=== PATIENT | male | born 1960 | race Caucasian/White ===

== ENCOUNTER → 2016-07-26 | Outpatient (CLI) | payer OTHER ==
[~2016-07-26] MED LIST: ASPCH81X PO; ASPI325T39 PO; BCTROWC EXT; CBCI IV; CIPR1TAB10 PO; CLB200 PO; CLC100 PO; COEN50CA22; DTR5 PO; FLV400; HYDR-5688 PO; METO25TA3 PO; MULT-506 PO; OXYC7.5T62 PO; PYRI1TAB30; [UNRECOGNIZED DRUG - CODE] TOP; [UNRECOGNIZED DRUG - OTHER]; omega q plus
[2016-07-26 17:36] LABS: BASO % 0.3 %; BASO ABS # 0.02 K/uL (0-0.2); COMPLETE YES; EOS % 0.8 %; IG% 0.3 %; LYMPH % 32.9 %; LYMPH ABS # 2.09 K/uL (1.2-3.4); MEAN CORPUSCULAR HEMOGLOBIN 31.9 pg (25-34); MEAN CORPUSCULAR HGB CONC 35.5 g/dl (32-36); MEAN PLATELET VOLUME 11.5 fL (7.4-10.4); MONO % 6.1 %; NEUT % 59.6 %; PLATELET COUNT 190 K/uL (130-400); RED BLOOD COUNT 4.89 M/uL (4.7-6.1); WHITE BLOOD COUNT 6.35 K/uL (4.8-10.8)
[2016-07-26 17:52] LABS: ALT/SGPT 31 U/L (12-78); AST/SGOT 21 U/L (15-37); BLOOD UREA NITROGEN 17 mg/dl (7-18); BUN/CREATININE RATIO 16.6 (10-20); CALCIUM 8.9 mg/dl (8.5-10.1); CARBON DIOXIDE 26 mmol/L (21-32); CHLORIDE 105 mmol/L (98-107); GLUCOSE 90 mg/dl (70-99); POTASSIUM 3.7 mmol/L (3.5-5.1); SODIUM 140 mmol/L (136-145)
[2016-07-26 17:57] LABS: ALB/GLOB RATIO 1.1 (0.9-2); ALKALINE PHOSPHATASE 64 U/L (45-117); CHOLESTEROL 208 mg/dl (0-200); CHOLESTEROL/HDL RATIO 4.2; HDL CHOLESTEROL 49 mg/dl; LDL CHOLESTEROL CALCULATED 137 mg/dl; TRIGLYCERIDES 110 mg/dl (0-150); VERY LOW DENSITY LIPOPROT CALC 22 mg/dl
--- NOTE | 2016-07-30 11:22 | CODING QUERY MEDICAL NECESSITY ---
SUPPORTING DIAGNOSIS NEEDED Dr. Machado, A supporting diagnosis is required for the test/procedure performed on this patient in order for us to be reimbursed by the patient's insurance. Please provide a supporting diagnosis for the following test/procedure listed below next to the test name along with your signature. *If there is no additional diagnosis for this patient that would support the following test/procedure please document that below next to the test/procedure. Test(s)/Procedure(s) that require a supporting diagnosis: * 16120 PSA DIAGNOSIS: DATE OF SERVICE: 07/26/16 Provider Signature: Date: Thank you Jabari Shi [facility] Information Management Once completed, please kindly fax back to [phone] For questions please call [phone]
== END | disposition home or self-care (01) ==
LOC: C.LABPBG 11:47
PROVIDERS: ATTEND Neuromusculoskeletal Medicine & OMM
DX: Z00.00 Encounter for general adult medical examination without abnormal findings (principal)

== ENCOUNTER → 2016-10-26 | Outpatient (CLI) | payer OTHER | END | disposition home or self-care (01) | LOC: C.LABPBG 08:23 | PROVIDERS: ATTEND Internal Medicine Infectious Disease | DX: T84.50XA Infection and inflammatory reaction due to unspecified internal joint prosthesis, initial encounter (principal); X58.XXXA Exposure to other specified factors, initial encounter ==

== ENCOUNTER → 2016-12-03 | Outpatient (CLI) | payer OTHER ==
[~2016-12-03] MED LIST changes: -ASPI325T39 PO; -CBCI IV; -CLB200 PO; -COEN50CA22; -FLV400; -HYDR-5688 PO; -PYRI1TAB30; -[UNRECOGNIZED DRUG - OTHER]; -omega q plus
== END | disposition home or self-care (01) ==
LOC: C.LABPBG 07:28
PROVIDERS: ATTEND Urology
DX: R97.20 Elevated prostate specific antigen [PSA] (principal)

== ENCOUNTER → 2016-12-16 | Outpatient (CLI) | payer OTHER ==
[~2016-12-16] MED LIST changes: -CIPR1TAB10 PO; -CLC100 PO; -DTR5 PO; -MULT-506 PO; -OXYC7.5T62 PO; -[UNRECOGNIZED DRUG - CODE] TOP
== END | disposition home or self-care (01) ==
LOC: C.PATHSPEC 17:34
PROVIDERS: ATTEND Urology
DX: R97.20 Elevated prostate specific antigen [PSA] (principal)

== ENCOUNTER → 2016-12-30 | Outpatient (CLI) | payer OTHER ==
[~2016-12-30] MED LIST changes: +CIPR1TAB10 PO; +CLC100 PO; +DTR5 PO; +MULT-506 PO; +OPTIRAY 320 IV PRN; +OXYC7.5T62 PO; +[UNRECOGNIZED DRUG - CODE] TOP
--- NOTE | 2016-12-30 13:38 | DIAGNOSTIC IMAGING REPORT ---
CT UROGRAM CLINICAL HISTORY: Hematuria. Prostate cancer. COMPARISON STUDY: No priors. TECHNIQUE: Before and following the IV administration of 94 cc of Optiray 320, CT urogram of the abdomen and pelvis is performed from the lung bases to the proximal femora. Images are reviewed in the axial, sagittal, and coronal planes. IV contrast was administered without complication. A dose lowering technique was utilized adhering to the principles of ALARA. CT DOSE: 1387.50 mGycm FINDINGS: Lung bases: The heart is normal in size and without pericardial effusion. The lung bases are clear. Liver: The contrast-enhanced liver is normal in size, contour, and attenuation. There is no intrahepatic biliary ductal dilatation. The hepatic veins and portal veins are patent. Gallbladder: Unremarkable. Spleen: Normal in size and attenuation. Pancreas: Unremarkable. Adrenal glands: Unremarkable. Kidneys and ureters: The contrast enhanced kidneys are normal in size and without hydronephrosis. There are no renal calculi identified on the unenhanced images. The kidneys enhance and excrete symmetrically. A 9 mm exophytic cyst arises from the upper pole of the right kidney. There is no enhancing renal cortical mass lesion identified. There is no evidence of urothelial lesion within the renal pelvis bilaterally or along the course of either ureter. A retroaortic left renal vein is incidentally noted. Abdominal vasculature: The abdominal aorta is normal in course and caliber noting mild atherosclerotic calcification. Bowel: The small bowel and colon are normal in course and caliber. The appendix is well-visualized and normal. Peritoneum: There is no intraperitoneal free air or abdominal ascites. There is a small fat-containing umbilical hernia. Lymphadenopathy: None. Pelvic viscera: Evaluation of the pelvis is degraded by streak artifact from a right hip arthroplasty. The prostate gland is enlarged and heterogeneous measuring 6.2 cm in transverse diameter. The bladder is decompressed, and the wall appears thickened and trabeculated. This suggests the sequelae of chronic outlet obstruction. The pelvic viscera is suboptimally assessed. Skeletal structures: No lytic or blastic bony lesions are seen. A right hip arthroplasty is in place. There is mild lumbosacral spondylosis. A healed right pubic ring fracture is noted. IMPRESSION: 1. No renal calculi are identified. 2. There is no enhancing renal cortical mass, and no evidence of urothelial lesion is seen within the renal pelvis bilaterally or along the course of the ureters. 3. The prostate gland is enlarged and heterogeneous. The appearance of the bladder suggests the sequelae of chronic outlet obstruction. The pelvic viscera is suboptimally assessed due to streak artifact from a hip arthroplasty. 4. There is no evidence of metastatic disease in the abdomen or pelvis. 5. Additional findings as above. Electronically signed by: Ramirez Bajwa M.D. 12/30/2016 1:37 PM Dictated Date/Time: 12/30/2016 1:26 PM
--- NOTE | 2016-12-31 07:24 | DIAGNOSTIC IMAGING REPORT ---
BONE SCAN WHOLE BODY CLINICAL HISTORY: Prostate cancer. COMPARISON STUDY: CT of the abdomen and pelvis December 30, 2016. TECHNIQUE: 26.526 mCi of technetium 90 9M MDP was injected IV at 1:00 PM on December 30, 2016. Whole body imaging in the anterior and posterior projections was performed 3 hours following injection. Spot images of the pelvis were obtained. FINDINGS: There is expected soft tissue and renal activity. Mild to moderate uptake within the medial compartment of the right knee is degenerative. There is a right hip arthroplasty with expected photopenia. There is a small focus of moderate radiotracer uptake which projects over the right inferior sacral ala shown only on the posterior projections. Uptake within the shoulders is degenerative. No additional areas of abnormal radiotracer uptake are identified. IMPRESSION: Small focus of moderate radiotracer uptake projecting over the right inferior sacral ala. This focus is indeterminate. A solitary metastasis would be difficult to exclude. An MRI of the sacrum and coccyx could be obtained. Electronically signed by: Austin Prado M.D. 12/31/2016 7:23 AM Dictated Date/Time: 12/30/2016 5:08 PM
== END | disposition home or self-care (01) ==
LOC: C.NUCL 12:36
PROVIDERS: ATTEND Urology
DX: C61 Malignant neoplasm of prostate (principal)

== ENCOUNTER → 2017-01-10 | Outpatient (CLI) | payer OTHER ==
[~2017-01-10] MED LIST changes: -BCTROWC EXT; -OPTIRAY 320 IV PRN
[2017-01-10 17:42] LABS: BASO % 0.6 %; BASO ABS # 0.03 K/uL (0-0.2); COMPLETE YES; HEMATOCRIT 44.8 % (42-52); IG% 0.4 %; LYMPH % 25.8 %; MEAN CELL VOLUME 96.1 fL (80-100); MEAN CORPUSCULAR HEMOGLOBIN 33.3 pg (25-34); MEAN CORPUSCULAR HGB CONC 34.6 g/dl (32-36); MEAN PLATELET VOLUME 11.2 fL (7.4-10.4); MONO % 10.9 %; NEUT % 60.3 %; PLATELET COUNT 169 K/uL (130-400); RED BLOOD COUNT 4.66 M/uL (4.7-6.1); WHITE BLOOD COUNT 5.42 K/uL (4.8-10.8)
[2017-01-10 17:47] LABS: URINE APPEARANCE CLEAR (CLEAR); URINE BILIRUBIN NEG (NEG); URINE COLOR YELLOW; URINE EPITHELIAL CELL AUTO 0-5 /lpf (0-5); URINE NITRITE NEG (NEG); URINE PH 5.5 (4.5-7.5); URINE SPECIFIC GRAVITY 1.021 (1.000-1.030); UROBILINOGEN NEG (NEG)
[2017-01-10 17:52] LABS: MANUAL MICROSCOPIC REQUIRED? NO; REVIEW REQ? NO
[2017-01-10 18:38] LABS: BLOOD UREA NITROGEN 20 mg/dl (7-18); BUN/CREATININE RATIO 20.3 (10-20); CALCIUM 9.4 mg/dl (8.5-10.1); CARBON DIOXIDE 27 mmol/L (21-32); CHLORIDE 106 mmol/L (98-107); GLUCOSE 99 mg/dl (70-99); POTASSIUM 4.3 mmol/L (3.5-5.1); SODIUM 137 mmol/L (136-145)
== END | disposition home or self-care (01) ==
LOC: C.LABPBG 14:27
PROVIDERS: ATTEND Urology
DX: C61 Malignant neoplasm of prostate (principal)

== ENCOUNTER → 2017-01-20 | Outpatient (CLI) | payer OTHER ==
[~2017-01-20] MED LIST changes: +GADAVIST IV PRN
--- NOTE | 2017-01-20 18:24 | DIAGNOSTIC IMAGING REPORT ---
MRI OF THE ABDOMEN COMBO; MRI OF THE PELVIS COMBO CLINICAL HISTORY: Prostate cancer. COMPARISON STUDY: Abdominal CT dated 12/30/2016. Nuclear bone scan dated 01/20/2017. TECHNIQUE: MRI of the abdomen and MRI of the pelvis is performed utilizing various T1 and T2-weighted sequences in the axial and coronal planes. Additional sagittal sequences were performed of the pelvis. Contrast enhanced sequences were acquired following the IV administration of 8 cc of Gadavist. FINDINGS: Lower chest: No pleural effusion is identified. The heart is normal in size without pericardial effusion. The lung bases are grossly clear as imaged but not well evaluated by MRI. Liver: The liver is normal in size, contour, and signal intensity. No intrahepatic biliary ductal dilatation is seen. The hepatic veins and portal veins are patent. Gallbladder: Unremarkable. Spleen: Normal in size and signal intensity. Small calcified splenic granulomas are suggested. Pancreas: Unremarkable. Adrenal glands: Unremarkable. Kidneys: The kidneys are normal in size and without hydronephrosis. The kidneys enhance symmetrically. A 9 mm cyst is noted in the right upper pole. A retroaortic left renal vein is incidentally noted. Abdominal aorta: Normal in course and caliber. Bowel: There is no evidence of bowel obstruction. Peritoneum: There is no abdominal ascites. Lymphadenopathy: None. Pelvic viscera: Evaluation of the pelvis is degraded by susceptibility artifact from a right hip arthroplasty. The bladder wall appears thickened and trabeculated suggesting chronic outlet obstruction. The prostate gland appears enlarged and heterogeneous, measuring 5.7 cm in transverse diameter. Skeletal structures: Visualized skeletal structures times are normal marrow signal intensity. Fatty marrow replacement is noted in the sacrum. No clear destructive bony lesions is identified. There is susceptibility artifact from a right hip arthroplasty. Bursal fluid overlies the right hip. IMPRESSION: 1. There is no MRI evidence of metastatic disease in the abdomen or pelvis. 2. There is fatty marrow change identified in the sacrum with no right sacral lesion identified to correspond to the abnormality seen by nuclear bone scan. The bone scan finding remains indeterminant. 3. The prostate gland is enlarged and heterogeneous. 4. Additional findings as above. Electronically signed by: Ramirez Bajwa M.D. 01/20/2017 6:22 PM Dictated Date/Time: 01/20/2017 6:05 PM
== END | disposition home or self-care (01) ==
LOC: C.MRI 16:36
PROVIDERS: ATTEND Urology
DX: C61 Malignant neoplasm of prostate (principal)

== ENCOUNTER 2017-01-25 08:00 | Inpatient (IN) | payer OTHER ==
[2017-01-11 10:10] VITALS: BMI 26.0
[2017-01-25] VITALS (7 sets, daily range): BP systolic 107–152; BP diastolic 73–87; PULSE 73–83; TEMP 36.5–37; O2SAT 95–98; Ht 180.3 cm; Wt 84.5 kg
[~2017-01-25] VITALS: Ht 180.3 cm; Wt 84.5 kg
[~2017-01-25 08:00] MED LIST changes: +CEFAZOLIN 2000 MG/60 ML D5W IV SCH; -CIPR1TAB10 PO; -CLC100 PO; -DTR5 PO; -GADAVIST IV PRN; +HEPARIN SOD 5000 UNIT/0.5 ML CARP SQ SCH; +LACTATED RINGER'S 1000ML 1,000 ML IV SCH; -OXYC7.5T62 PO; -[UNRECOGNIZED DRUG - CODE] TOP
[2017-01-25] MEDS ORDERED: ONDANSETRON INJ 2 MG/ML 2 ML VIAL IV PRN ×2 (09:00→14:45)
[2017-01-25] MEDS ORDERED: EpHEDrine SULFATE INJ 50 MG/ML AMP IV PRN (09:00)
[2017-01-25] MEDS ORDERED: HYDROmorphone INJ 1 MG/ML SYR IV PRN ×2 (09:00→14:45)
[2017-01-25] MEDS ORDERED: ATROPINE SULFATE 0.1 MG/ML 5ML SYR IV PRN (09:00)
[2017-01-25] MEDS ORDERED: LABETALOL HCL IV 5 MG/ML 20ML IV PRN (09:00)
[2017-01-25] MEDS ORDERED: FLUMAZENIL 0.1 MG/1 ML 10 ML VIAL IV PRN (09:00)
[2017-01-25] MEDS ORDERED: MEPERIDINE HCL 25 MG/ML CARP IV PRN (09:00)
[2017-01-25] MEDS ORDERED: MoRPHine SULFATE 10 MG/ML CARP/VIAL IV PRN (09:00)
[2017-01-25] MEDS ORDERED: NALOXONE HCL 0.4 MG/1 ML VIAL/CARP IV PRN (09:00)
[2017-01-25] MEDS ORDERED: PHENYLEPHRINE 100MCG/ML 5ML SYR IV PRN (09:00)
[2017-01-25] MEDS ORDERED: LIDOCAINE HCL 2% 2 ML VIAL (20MG/ML) ONE (09:31)
[2017-01-25] MEDS ORDERED: ONDANSETRON INJ 2 MG/ML 2 ML VIAL ONE (09:31)
[2017-01-25] MEDS ORDERED: ROCURONIUM BROMIDE 10 MG/ML 5 ML VIAL IV ONE ×2 (09:31→12:47)
[2017-01-25] MEDS ORDERED: PROPOFOL IV EMULSION 10 MG/ML 20 ML VIAL IV ONE (09:31)
[2017-01-25] MEDS ORDERED: DEXAMETHASONE SOD INJ 4 MG/ML VIAL ONE (09:31)
[2017-01-25] MEDS ORDERED: FENTANYL CITRATE INJ 50 MCG/1 ML 2 ML VIAL ONE ×2 (09:31→12:52)
[2017-01-25] MEDS ORDERED: HYDROmorphone INJ 2 MG/ML SYR/VIAL ONE (09:32)
[2017-01-25] MEDS ORDERED: MIDAZOLAM HCL 1 MG/ML 2ML VIAL ONE (09:32)
--- NOTE | 2017-01-25 11:36 | History & Physical Bridge Note ---
H&P Re-Evaluation Bridge Note: I have examined the patient, reviewed the History & Physical and in the interval since the performance of the History & Physical I have noted the following changes of clinical significance: No changes noted
[2017-01-25] MEDS ORDERED: BUPIVACAINE 0.5 % 5 MG/1 ML MPF 30ML VIAL ONE (11:56)
[2017-01-25] MEDS ORDERED: METHYLENE BLUE 0.5% 10 ML VIAL ONE (11:56)
[2017-01-25] MEDS ORDERED: BELLADONNA/OPIUM SUPP 60 MG SUPP PR ONE (12:27)
[2017-01-25] MEDS ORDERED: LABETALOL HCL IV 5 MG/ML 20ML IV ONE (12:44)
[2017-01-25] MEDS ORDERED: NEOSTIGMINE METHYLSULFATE 5 MG/5 ML SYR ONE (12:45)
[2017-01-25] MEDS ORDERED: GLYCOPYRROLATE INJ 0.2 MG/ML VIAL ONE (12:45)
[2017-01-25] MEDS ORDERED: SURGICEL ABSORB HEMOSTAT 2IN X 14IN TOP ONE (12:57)
[2017-01-25] MEDS ORDERED: FLOSEAL HEMOSTATIC MATRIX 10ML TOP ONE (13:18)
[2017-01-25] MEDS ORDERED: KETOROLAC TROMETHAMINE 30 MG/ML VIAL IV. PRN (14:45)
[2017-01-25] MEDS ORDERED: OXYBUTYNIN CHLORIDE 5 MG TAB PO PRN (14:45)
--- NOTE | 2017-01-25 14:59 | [facility] Operative Report ---
Operative Report Operative Date Jan 25, 2017. Pre-Operative Diagnosis Prostate Cancer Post-Operative Diagnosis Prostate cancer Procedure(s) Performed Laparoscopic Prostatectomy Da Marlyn Surgeon Dr. Jhonny Rose Clinical Biochemical Geneticist Surgeon(s) NIKITA Mota Estimated Blood Loss 100 mL Findings As per dictation Specimens Permanent specimens A: Periprostatic Fat B: Prostate and seminal vesicles Drains Rollins Anesthesia Gen. Complication(s) None Disposition Recovery Room / PACU (stable) Indications Prostate cancer Description of Procedure Chepe Mendenhall was identified in the preoperative holding area, appropriate informed consents were reviewed and completed, and he was transported to the operating suite. Subcutaneous heparin was administered in the pre-operative holding area. Upon arrival in the operating suite, he received approrpiate antibiotics and general anesthesia. He was positioned in dorsal lithotomy, a B& O suppository was inserted after digital rectal exam, and he was prepped and draped in standard fashion. A rollins catheter was inserted in the sterile field. A Verress needle was passed per umbilicus with uniform insuflation of the abdomen to 15mmHg. He was placed in steep trendelenberg position. A periumbilical incision was then made to accomodate a 12mm visiport with 10mm 0degree laparascope. Inspection of the abdomen was carried out, and there was no evidence of traumatic entry or injury secondary to the Verress needle. The anterior abdominal wall was inspected and all planned port sites were determined to be safe and clear of adhesions. Ports were placed in a standard robotic prostatectomy template without incident. To begin the robotic portion of the case, the left lateral aspect of the sigmoid was mobilized off of the left pelvic side wall to allow the pouch of Trey to be appropriately emptied. The medial umbilical ligaments were then controlled with bipolar electrocautery just inferior to the umbilicus. Following cauterization, they were divided utilizing monopolar cautery. A peritoneal incison was carried from this location to the medial aspect of the internal inguinal rings bilaterally with care to avoid opening through the ring. This incision was concluded when the vas deferens was reached. Dissection of the bladder and prostate off of the posterior aspect of the pubic arch was completed allowing full visualization of the prostate. The fat overlying the prostate was removed en bloc and passed off the table as a specimen labeled "periprostatic fat". The endopelvic fascia was cleared during this portion of the procedure, and subsequently opened - first on the right and then the left. The incision through the endopelvic fascia began near the prostate-bladder junction and was carried to the apex with extreme care to preserve all lateral levator musculature as well as the periurethral musculature and sphincter complex. The puboprostatic ligaments were thinned slightly bilaterally before placing a 0-vicryl figure of 8 stitch around the DVC. My attention then returned to the prostate, with identification of the bladder neck aided by gentle traction on the rollins catheter and lateral to medial pressure at the presumed level of the bladder neck with the robotic instruments. An anterior cystotomy was made, the rollins balloon deflated and the cathetere guided through the incision to allow anterior retraction. I attempted to preserve maximal bladder neck musculature as I circumferentially developed the bladder neck. After incision through the posterior aspect of the mucosa, the dissection was carried through detrusor muscle until the bilateral ampullae of the vasa were identified. Vasa were each dissected before being transected. These were used to further aide in anterior retraction as the bilateral seminal vesicals were dissected with very judicious use of bipolar electrocautery. Following SV dissection, a posterior plane behind the prostate was developed - splitting Denonvillier's fascia. This dissection was carried as far as possible towards the apex as well as far as possible laterally. An incision in the lateral prostatic fascia was then made bilaterally to facilitate control of the vascular pedicles. The pedicles were each controlled with a series of weck clips. The neurovascular bundles were identified and a bilateral, moderately aggressive nerve sparing was performed. The apical attachments of the prostate were remaining at that stage. The DVC was divided with bipolar electrocautery. Renita-prostatic tissue incised with sharp cautery and monopolar cautery. Maximal urethral length was preserved before dividing the urethra with sharp dissection. The prostate was collected in an endocatch bag and moved out of the field of vision. Hemostasis was confirmed and anastamosis of the bladder and urethra was completed utilizing a double armed V-Lock stitch. A new rollins catheter was inserted and the anastamosis tested with irrigation. There was no evidence of leak. Floseal coagulant was placed around the anastamosis. The robot was undocked, the specimen extracted through expansion of the renita- umbilical camera port. The fascia was closed with a series of 0-PDS figure of 8 stitches. The right processing assistant port was closed in two layers - with a figure of 8 0-vicryl to reapproximate the fascia followed by 4-0 monocryl to close the skin. Monocryl was used to close all other skin incisions. All wounds were infiltrated with marcaine prior to application of Dermabond. The case was concluded and the patient taken to the PACU in stable condition. I attest to the content of the Intraoperative Record and any orders documented therein. Any exceptions are noted below.
[2017-01-25 15:21] LABS: HEMATOCRIT 44.8 % (42-52); MEAN CELL VOLUME 96.1 fL (80-100); MEAN CORPUSCULAR HEMOGLOBIN 32.8 pg (25-34); MEAN PLATELET VOLUME 10.4 fL (7.4-10.4); PLATELET COUNT 152 K/uL (130-400); RED BLOOD COUNT 4.66 M/uL (4.7-6.1); WHITE BLOOD COUNT 9.34 K/uL (4.8-10.8)
--- NOTE | 2017-01-25 15:27 | Anesthesiology Progress Note ---
Anesthesia Post Op Note Date & Time Jan 25, 2017 at 15:26 Vital Signs Pain Intensity: 0 Vital Signs Past 12 Hours Date Time Temp Pulse Resp B/P (MAP) Pulse Ox O2 Delivery O2 Flow Rate FiO2 01/25/17 15:15 68 14 141/86 98 Nasal Cannula 2 01/25/17 15:05 68 17 138/84 100 Oxymask 10 01/25/17 14:55 36.7 68 15 123/93 100 Oxymask 10 01/25/17 08:15 36.7 74 20 152/87 01/25/17 08:15 95 Room Air Notes Mental Status: alert / awake / arousable, participated in evaluation Pt Amnestic to Procedure: Yes Nausea / Vomiting: adequately controlled Pain: adequately controlled Airway Patency, RR, SpO2: stable & adequate BP & HR: stable & adequate Hydration State: stable & adequate Anesthetic Complications: no major complications apparent
[2017-01-25] MEDS ORDERED: HYDROmorphone INJ 1 MG/ML SYR ONE (15:28)
[2017-01-25 15:32] LABS: MEAN CORPUSCULAR HGB CONC 34.2 g/dl (32-36)
[2017-01-25 15:46] LABS: BUN/CREATININE RATIO 9.9 (10-20); POTASSIUM 3.7 mmol/L (3.5-5.1)
[2017-01-25] MEDS ORDERED: MoRPHine SULFATE 4 MG/ML 1 ML CARP\\VIAL ONE (15:51)
[2017-01-25] MEDS: LACTATED RINGER'S 1000ML 1,000 ML IV SCH ×2 (17:02→21:23)
[2017-01-25 17:20] LABS: PARTIAL THROMBOPLASTIN RATIO 0.9; PROTHROMBIN TIME (PATIENT) 11.2 SECONDS (9.0-12.0)
[2017-01-25] MEDS: CEFAZOLIN IV 2,000 MG in DEXTROSE 5% 50ML 50 ML IV SCH (19:39)
[2017-01-25] MEDS: DOCUSATE SODIUM 100 MG CAP PO SCH (20:33)
[2017-01-25] MEDS: ACETAMINOPHEN/CODEINE 300/30MG TAB PO PRN (20:33)
[2017-01-25] MEDS: HEPARIN SOD 5000 UNIT/0.5 ML CARP SQ SCH (20:37)
[2017-01-25] MEDS: ACETAMINOPHEN 500 MG TAB PO SCH (21:37)
[2017-01-26] MEDS: ACETAMINOPHEN 500 MG TAB PO SCH (03:50)
[2017-01-26] MEDS: CEFAZOLIN IV 2,000 MG in DEXTROSE 5% 50ML 50 ML IV SCH ×2 (03:52→11:48)
[2017-01-26] MEDS: LACTATED RINGER'S 1000ML 1,000 ML IV SCH ×2 (03:52→10:39)
[2017-01-26 03:56] VITALS: BP 119/71; PULSE 74; TEMP 36.7; O2SAT 98
[2017-01-26] MEDS: ACETAMINOPHEN/CODEINE 300/30MG TAB PO PRN (06:13)
[2017-01-26 07:01] VITALS: BP 111/65; PULSE 75; TEMP 36.6; O2SAT 97
[2017-01-26 07:17] LABS: BASO % 0.1 %; BASO ABS # 0.01 K/uL (0-0.2); COMPLETE YES; HEMATOCRIT 39.1 % (42-52); IG% 0.1 %; LYMPH % 11.6 %; LYMPH ABS # 0.95 K/uL (1.2-3.4); MEAN CELL VOLUME 94.2 fL (80-100); MEAN CORPUSCULAR HEMOGLOBIN 33.3 pg (25-34); MEAN CORPUSCULAR HGB CONC 35.3 g/dl (32-36); MEAN PLATELET VOLUME 10.3 fL (7.4-10.4); MONO % 9.5 %; NEUT % 78.7 %; PLATELET COUNT 155 K/uL (130-400); RED BLOOD COUNT 4.15 M/uL (4.7-6.1); WHITE BLOOD COUNT 8.17 K/uL (4.8-10.8)
[2017-01-26 07:52] LABS: BUN/CREATININE RATIO 11.6 (10-20); CALCIUM 8.7 mg/dl (8.5-10.1); CREATININE 0.91 mg/dl (0.60-1.40); POTASSIUM 3.9 mmol/L (3.5-5.1)
[2017-01-26 08:00] VITALS: O2SAT 97
--- NOTE | 2017-01-26 08:02 | Anesthesiology Progress Note ---
Anesthesia Post Op Note Date & Time Jan 26, 2017 at 08:02 Vital Signs Pain Intensity: 5.0 Vital Signs Past 12 Hours Date Time Temp Pulse Resp B/P (MAP) Pulse Ox O2 Delivery O2 Flow Rate FiO2 01/26/17 07:01 36.6 75 16 111/65 (80) 97 Room Air 01/26/17 03:56 36.7 74 18 119/71 (87) 98 Room Air 01/25/17 23:15 Room Air 01/25/17 23:00 37.0 73 16 121/73 (89) 97 Room Air Notes Mental Status: alert / awake / arousable, participated in evaluation Pt Amnestic to Procedure: Yes Nausea / Vomiting: adequately controlled Pain: adequately controlled Airway Patency, RR, SpO2: stable & adequate BP & HR: stable & adequate Hydration State: stable & adequate Anesthetic Complications: no major complications apparent
[2017-01-26] MEDS ORDERED: ACETAMINOPHEN 325 MG TAB PO PRN (08:15)
[2017-01-26] MEDS ORDERED: OXYCODONE/ACETAMINOPHEN 7.5-325 TAB PO PRN (08:15)
--- NOTE | 2017-01-26 08:20 | Progress Note ---
Subjective Date of Service: Jan 26, 2017. Subjective Pt evaluation today including: conversation w/ patient, chart review, lab review Voiding: rollins catheter in place (patent, draining clear, yellow urine) 57 yo male s/p RALRP. Pt reports some mild incisional and joint pain this morning, but otherwise feels well. Feels the Tylenol #3 did not help with his pain, but Dilaudid did. Denies n/v. Tolerating clear liquids. Denies flatus or BM. He has been OOB to chair. I&Os acceptable. Labs stable. Review of Systems Constitutional: No fever, No chills Respiratory: No shortness of breath Cardiac: No chest pain Abdomen: + see HPI, + pain (incisional ), No nausea, No vomiting Male : No hematuria Heme: No abnormal bleeding/bruising Objective Vital Signs Date Time Temp Pulse Resp B/P (MAP) Pulse Ox O2 Delivery O2 Flow Rate FiO2 01/26/17 07:01 36.6 75 16 111/65 (80) 97 Room Air 01/26/17 03:56 36.7 74 18 119/71 (87) 98 Room Air 01/25/17 23:15 Room Air 01/25/17 23:00 37.0 73 16 121/73 (89) 97 Room Air 01/25/17 19:15 36.8 82 18 128/75 (92) 97 Nasal Cannula 2.0 01/25/17 18:19 36.5 80 18 117/75 (89) 97 Nasal Cannula 2.0 01/25/17 17:16 36.7 83 18 107/78 (88) 98 Nasal Cannula 2.0 01/25/17 16:45 36.5 75 18 122/82 (95) 96 Nasal Cannula 2.0 01/25/17 16:15 95 Nasal Cannula 2.0 01/25/17 16:15 36.7 75 18 117/75 (89) 95 Nasal Cannula 2.0 01/25/17 16:15 95 Nasal Cannula 2.0 01/25/17 16:05 36.6 71 14 120/76 96 Nasal Cannula 2 01/25/17 15:55 72 12 118/78 94 Nasal Cannula 2 01/25/17 15:45 66 15 132/85 98 Nasal Cannula 2 01/25/17 15:35 69 12 122/85 96 Nasal Cannula 2 01/25/17 15:25 68 14 131/86 97 Nasal Cannula 2 01/25/17 15:15 68 14 141/86 98 Nasal Cannula 2 01/25/17 15:05 68 17 138/84 100 Oxymask 10 01/25/17 14:55 36.7 68 15 123/93 100 Oxymask 10 01/25/17 08:15 36.7 74 20 152/87 01/25/17 08:15 95 Room Air Physical Exam General Appearance: no apparent distress Eyes: normal inspection ENT: hearing grossly normal Neck: no JVD Respiratory/Chest: no respiratory distress, no accessory muscle use Cardiovascular: no JVD Abdomen: + pertinent finding (abdominal incisions c/d/i) Extremities: normal inspection Neurologic/Psychiatric: alert, normal mood/affect, oriented x 3 Skin: normal color, + pertinent finding (folliculitis noted over the chest and groin ) Laboratory Results Last 24 Hours Test 01/25/17 15:11 01/25/17 17:05 01/26/17 06:29 White Blood Count 9.34 K/uL 8.17 K/uL Red Blood Count 4.66 M/uL 4.15 M/uL Hemoglobin 15.3 g/dL 13.8 g/dL Hematocrit 44.8 % 39.1 % Mean Corpuscular Volume 96.1 fL 94.2 fL Mean Corpuscular Hemoglobin 32.8 pg 33.3 pg Mean Corpuscular Hemoglobin Concent 34.2 g/dl 35.3 g/dl RDW Standard Deviation 43.8 fL 43.2 fL RDW Coefficient of Variation 12.6 % 12.5 % Platelet Count 152 K/uL 155 K/uL Mean Platelet Volume 10.4 fL 10.3 fL Sodium Level 138 mmol/L 138 mmol/L Potassium Level 3.7 mmol/L 3.9 mmol/L Chloride Level 103 mmol/L 103 mmol/L Carbon Dioxide Level 29 mmol/L 27 mmol/L Anion Gap 6.0 mmol/L 8.0 mmol/L Blood Urea Nitrogen 10 mg/dl 11 mg/dl Creatinine 1.00 mg/dl 0.91 mg/dl Est Creatinine Clear Calc Drug Dose 85.7 ml/min 94.2 ml/min Estimated GFR () 95.7 107.3 Estimated GFR (Non- 82.6 92.6 BUN/Creatinine Ratio 9.9 11.6 Random Glucose 127 mg/dl 135 mg/dl Calcium Level 9.0 mg/dl 8.7 mg/dl Prothrombin Time 11.2 SECONDS Prothromb Time International Ratio 1.0 Activated Partial Thromboplast Time 22.5 SECONDS Partial Thromboplastin Ratio 0.9 Neutrophils (%) (Auto) 78.7 % Lymphocytes (%) (Auto) 11.6 % Monocytes (%) (Auto) 9.5 % Eosinophils (%) (Auto) 0.0 % Basophils (%) (Auto) 0.1 % Neutrophils # (Auto) 6.42 K/uL Lymphocytes # (Auto) 0.95 K/uL Monocytes # (Auto) 0.78 K/uL Eosinophils # (Auto) 0.00 K/uL Basophils # (Auto) 0.01 K/uL Immature Granulocyte % (Auto) 0.1 % Immature Granulocyte # (Auto) 0.01 K/uL Assessment and Plan POD #1 s/p RALRP. AFVSS. Pt doing well post-op. Labs stable. Will switch him to Percocet from Tylenol #3 for pain. Will provide a mechanical soft diet for breakfast. Hep lock after breakfast if tolerating PO. Encourage ambulation to hallway. Possible d/c home after lunch if tolerating PO, ambulating without difficulty, and pain controlled. Will d/c home with Percocet, Colace, oxybutynin, Cipro, and clindamycin solution for the folliculitis noted over his chest and groin. Discharge planning: home
[2017-01-26] MEDS ORDERED: OXYC7.5T62 PO ×2 (08:32)
[2017-01-26] MEDS ORDERED: CIPR1TAB10 PO ×2 (08:32)
[2017-01-26] MEDS ORDERED: [UNRECOGNIZED DRUG - CODE] TOP ×2 (08:32)
[2017-01-26] MEDS ORDERED: CLC100 PO ×2 (08:32)
[2017-01-26] MEDS ORDERED: DTR5 PO ×2 (08:32)
[2017-01-26] MEDS: DOCUSATE SODIUM 100 MG CAP PO SCH (08:34)
--- NOTE | 2017-01-26 08:39 | Discharge Instructions ---
Discharge Instructions Date of Service Jan 26, 2017. Admission Reason for Admission: Prostate Cancer Discharge Discharge Diagnosis / Problem: Prostate Cancer Discharge Goals Goal(s): Decrease discomfort, Improve function, Increase independence, Improve disease control, Improve nutritional status, Therapeutic intervention Activity Recommendations Activity Limitations: as noted below Shower/Bathe: tomorrow 1. Do not lift >15lbs x 6 weeks. 2. No heavy exercise x 6 weeks. You may engage in light activity such as walking and stairs as tolerated. 3. No sexual intercourse until cleared by Dr. Machado or Dr. Rose. 4. Do not drive x [address] while taking narcotics. 5. You have been prescribed the antibiotic Ciprofloxacin. Start this medication 2 days prior to rollins catheter removal. Finish all of the antibiotic you have been prescribed. 6. Immediately call our office at [phone] if your catheter is removed for any reason. 7. Follow-up as scheduled. Please call our office at [phone] if you need to reschedule for any reason. . . Current Hospital Diet Hospital Diet(s): Regular Diet Discharge Diet Recommended Diet: Regular Diet Procedures Procedures Performed: Laparoscopic Prostatectomy Da Marlyn Pending Studies Studies pending at discharge: yes List of pending studies: prostate and lymph node pathology Laboratory Results Hemoglobin A1c Test 11/22/16 13:22 Range/Units Estimated Average Glucose 105 mg/dl Hemoglobin A1c 5.3 4.5-5.6 % Medical Emergencies . Who to Call and When: Medical Emergencies: If at any time you feel your situation is an emergency, please call 911 immediately. . Non-Emergent Contact Non-Emergency issues call your: Urologist Call Non-Emergent contact if: temperature is above 101.5, your pain is not controlled, your pain is worsening, your pain is unusual for you, your pain is concerning you, wound has increased drainage, wound has increased redness, wound has increased pain, you have any medication questions . . "Provider Documentation" section prepared by Jesika Eisenberg. . VTE Core Measure Inpt VTE Proph given/why not?: Unfractionated heparin SQ, SCD's [place] Drug Monitoring Program Search Results: patient reviewed within database, no issues identified
[2017-01-26] MEDS: HEPARIN SOD 5000 UNIT/0.5 ML CARP SQ SCH (08:45)
[2017-01-26] MEDS ORDERED: METOPROLOL SUCC 25MG EXT REL TAB PO SCH (09:00)
[2017-01-26] MEDS ORDERED: CLINDAMYCIN SOLN 150 MG/10 ML UDP PO SCH (09:00)
[2017-01-26] MEDS ORDERED: NURSING VERBAL MED ORDER ONE (10:45)
[2017-01-26 11:23] VITALS: BP 114/73; PULSE 69; TEMP 36.6; O2SAT 98
[2017-01-26 15:06] VITALS: BP 109/65; PULSE 77; TEMP 36.3; O2SAT 97
[2017-01-26 16:15] VITALS: BP 109/65; PULSE 77; TEMP 36.3; O2SAT 97
--- NOTE | 2017-01-27 09:04 | Discharge Summary ---
Discharge Summary Date of Service Jan 27, 2017. Discharge Summary Admission Date: Jan 25, 2017 at 08:30 Discharge Date: Jan 26, 2017 Discharge Disposition: Home Principal Diagnosis: Prostate cancer Procedures: Robotic prostatectomy Medication Reconciliation New Medications: Ciprofloxacin Hcl (Cipro) 500 Mg Tab 500 MG PO BID, #10 TAB Start 2 days prior to rollins catheter removal. Clindamycin Phos (Clindamycin Phosphate) 60 Appln/60 Ml Lotn 1 % TOP QAM, #60 ML 0 Refills Apply to affected areas of folliculitis/acne on groin and chest once daily. Docusate Sodium (Docusate Sodium) 100 Mg Cap 100 MG PO BID PRN for Constipation, #60 CAP 0 Refills Oxybutynin Chloride (Oxybutynin Chloride) 5 Mg Tab 5 MG PO Q8 PRN for BLADDER SPASMS, #30 TAB 0 Refills Oxycodone/Acetaminophen 7.5MG/325MG (Endocet 7.5MG/325MG) 1 Tab Tab 1-2 TAB PO Q4H PRN for Pain, #20 TAB 0 Refills Continued Medications: Aspirin (Aspirin Chewable) 81 Mg Chew 81 MG PO QAM Metoprolol Succinate (Toprol Xl) 25 Mg Tabcr 25 MG PO QAM, #30 TAB Multivitamin (Multivitamin) Tab 1 TAB PO DAILY, TAB Hospital Course Chepe Mendenhall was admitted on January 25 for a robotic prostatectomy secondary to his recently diagnosed prostate cancer. Please see the previously written operative report for details of the procedure, however in summary tolerated this procedure extremely well. He was transferred to the floor in stable condition has progressed appropriately overnight. He was ambulatory, his pain was well controlled, his urine output was appropriate. All labs were stable, he was tolerating a diet. On the morning of postoperative day 1 he was determined to be in stable condition for discharge home and subsequently discharged. Total time spent on discharge = This includes examination of the patient, discharge planning, medication reconciliation, and communication with other providers. Discharge Instructions Please see previously written discharge instructions
== END 2017-01-26 17:30 | disposition home or self-care (01) | DRG 708 ==
LOC: C.ACU 08:00 → C.MSN 08:30 → ENRESERV 15:24
PROVIDERS: ADMIT Urology; ATTEND Urology
PROC: 0VT04ZZ Resection of Prostate, Percutaneous Endoscopic Approach (ICD-10-PCS; principal; 2017-01-25 10:00)
PROC: 8E0W4CZ Robotic Assisted Procedure of Trunk Region, Percutaneous Endoscopic Approach (ICD-10-PCS; principal; 2017-01-25 10:00)
PROC: 0VT34ZZ Resection of Bilateral Seminal Vesicles, Percutaneous Endoscopic Approach (ICD-10-PCS; principal; 2017-01-25 10:00)
DX: C61 Malignant neoplasm of prostate (principal); I48.0 Paroxysmal atrial fibrillation; N40.0 Benign prostatic hyperplasia without lower urinary tract symptoms; I25.10 Atherosclerotic heart disease of native coronary artery without angina pectoris; I10 Essential (primary) hypertension; Z96.649 Presence of unspecified artificial hip joint; Z79.82 Long term (current) use of aspirin

== ENCOUNTER → 2017-03-03 | Outpatient (CLI) | payer OTHER ==
[~2017-03-03] MED LIST changes: -CEFAZOLIN 2000 MG/60 ML D5W IV SCH; +CIPR1TAB10 PO; +CLC100 PO; +DTR5 PO; -HEPARIN SOD 5000 UNIT/0.5 ML CARP SQ SCH; -LACTATED RINGER'S 1000ML 1,000 ML IV SCH; +OXYC7.5T62 PO; +[UNRECOGNIZED DRUG - CODE] TOP
[2017-03-03 12:44] LABS: URINE APPEARANCE CLEAR (CLEAR); URINE BILIRUBIN NEG (NEG); URINE COLOR DK YELLOW; URINE NITRITE NEG (NEG); URINE SPECIFIC GRAVITY 1.022 (1.000-1.030); UROBILINOGEN NEG (NEG)
[2017-03-03 12:46] LABS: MANUAL MICROSCOPIC REQUIRED? NO; REVIEW REQ? NO
== END | disposition home or self-care (01) ==
LOC: C.LABSPEC 15:45
PROVIDERS: ATTEND Family Medicine
DX: R32 Unspecified urinary incontinence (principal)

== ENCOUNTER → 2017-03-15 | Outpatient (CLI) | payer OTHER ==
[2017-03-15 13:07] LABS: BLOOD UREA NITROGEN 22 mg/dl (7-18); BUN/CREATININE RATIO 25.2 (10-20); CARBON DIOXIDE 24 mmol/L (21-32); CHLORIDE 106 mmol/L (98-107); CREATININE 0.87 mg/dl (0.60-1.40); GLUCOSE 103 mg/dl (70-99); POTASSIUM 3.8 mmol/L (3.5-5.1); SODIUM 137 mmol/L (136-145)
[2017-03-15 13:12] LABS: CHOLESTEROL 219 mg/dl (0-200); CHOLESTEROL/HDL RATIO 3.6; HDL CHOLESTEROL 61 mg/dl; LDL CHOLESTEROL CALCULATED 131 mg/dl; PROSTATE SPECIFIC ANTIGEN < 0.010 ng/ml (0.000-4.000); TRIGLYCERIDES 135 mg/dl (0-150); VERY LOW DENSITY LIPOPROT CALC 27 mg/dl
== END | disposition home or self-care (01) ==
LOC: C.LABPBG 08:02
PROVIDERS: ATTEND Family Medicine
DX: C61 Malignant neoplasm of prostate (principal); E78.00 Pure hypercholesterolemia, unspecified; I10 Essential (primary) hypertension

== ENCOUNTER → 2017-04-19 | Outpatient (CLI) | payer OTHER | END | disposition home or self-care (01) | LOC: C.LABPBG 08:07 | PROVIDERS: ATTEND Urology | DX: C61 Malignant neoplasm of prostate (principal) ==

== ENCOUNTER → 2017-07-19 | Outpatient (CLI) | payer OTHER ==
[~2017-07-19] MED LIST changes: -METO25TA3 PO; +METO25TA4 PO
== END | disposition home or self-care (01) ==
LOC: C.LABPBG 08:16
PROVIDERS: ATTEND Urology
DX: C61 Malignant neoplasm of prostate (principal)

== ENCOUNTER → 2018-01-18 | Outpatient (CLI) | payer OTHER ==
[~2018-01-18] MED LIST changes: -CIPR1TAB10 PO; -CLC100 PO; -DTR5 PO; +METO25TA3 PO; -METO25TA4 PO; -OXYC7.5T62 PO; -[UNRECOGNIZED DRUG - CODE] TOP
--- NOTE | 2018-01-18 14:47 | DIAGNOSTIC IMAGING REPORT ---
CHEST 2 VIEWS ROUTINE CLINICAL HISTORY: 58 years-old Male presenting with preoperative assessment, asymptomatic. TECHNIQUE: PA and lateral views of the chest were obtained. COMPARISON: 11/22/2016. FINDINGS: Cardiomediastinal silhouette normal. Lungs and pleural spaces clear. Anterior and posterior cervicothoracic fusion hardware noted. Degenerative changes of the spine. Upper abdomen normal. IMPRESSION: 1. No acute cardiopulmonary disease. Electronically signed by: Kendall Pettit M.D. 01/18/2018 2:45 PM Dictated Date/Time: 01/18/2018 2:44 PM
[2018-01-18 15:10] LABS: BASO % 0.4 %; BASO ABS # 0.02 K/uL (0-0.2); EOS % 2.8 %; EOS ABS # 0.14 K/uL (0-0.5); HEMATOCRIT 47.8 % (42-52); HEMOGLOBIN 16.7 g/dL (14.0-18.0); LYMPH % 32.1 %; MEAN CELL VOLUME 93.2 fL (80-100); MEAN CORPUSCULAR HEMOGLOBIN 32.6 pg (25-34); MEAN CORPUSCULAR HGB CONC 34.9 g/dl (32-36); MEAN PLATELET VOLUME 11.2 fL (7.4-10.4); MONO ABS # 0.55 K/uL (0.11-0.59); NEUT % 53.7 %; NEUT ABS # 2.68 K/uL (1.4-6.5); PLATELET COUNT 165 K/uL (130-400); RED CELL DISTRIBUTION WIDTH CV 12.9 % (11.5-14.5); WHITE BLOOD COUNT 4.99 K/uL (4.8-10.8)
[2018-01-18 15:20] LABS: BLOOD UREA NITROGEN 17 mg/dl (7-18); CALCIUM 9.6 mg/dl (8.5-10.1); CARBON DIOXIDE 29 mmol/L (21-32); CREATININE 0.95 mg/dl (0.60-1.40); GLUCOSE 89 mg/dl (70-99); POTASSIUM 4.9 mmol/L (3.5-5.1); SODIUM 135 mmol/L (136-145)
[2018-01-18 15:26] LABS: PTT PATIENT 24.1 SECONDS (21.0-31.0)
== END | disposition home or self-care (01) ==
LOC: C.CPL 13:16
PROVIDERS: ATTEND Orthopaedic Surgery Orthopaedic Surgery of the Spine
DX: Z01.818 Encounter for other preprocedural examination (principal)

== ENCOUNTER → 2018-01-23 | Outpatient (CLI) | payer OTHER ==
[~2018-01-23] MED LIST changes: -MULT-506 PO
[2018-01-23 13:36] LABS: BLOOD UREA NITROGEN 19 mg/dl (7-18); CALCIUM 9.1 mg/dl (8.5-10.1); CARBON DIOXIDE 25 mmol/L (21-32); CHOLESTEROL 202 mg/dl (0-200); CREATININE 0.94 mg/dl (0.60-1.40); GLUCOSE 101 mg/dl (70-99); LDL CHOLESTEROL CALCULATED 131 mg/dl; SODIUM 138 mmol/L (136-145)
== END | disposition home or self-care (01) ==
LOC: C.LABPBG 08:21
PROVIDERS: ATTEND Family Medicine
DX: R32 Unspecified urinary incontinence (principal); Z86.14 Personal history of Methicillin resistant Staphylococcus aureus infection; E78.00 Pure hypercholesterolemia, unspecified; I10 Essential (primary) hypertension

== ENCOUNTER 2018-08-15 07:24 | Inpatient (IN) ==
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
--- NOTE | 2018-07-21 11:32 | Anesthesiology Consultation ---
Date of Service July 21, 2018 Assessment & Plan (1) Encounter for pre-operative examination: Chart Review Chart Review: Acceptable Risk for Surgery and Patient seen in Pre Admission Testing Consults Requested cardiac (Dr. Duke (07/28 @ 8:30)) Patient was seen by Cardiology on 07/28/18. Note states "Based on his levels of physical activity without limiting cardiopulmonary symptoms, structurally normal heart with normal LV systolic function on ECHO 2013, and his lack of any dysrhythmias -- Patient is an acceptable surgical risk to proceed with surgery as scheduled, provided he takes his usual dose of Toprol XL the morning of surgery with sips of water. There is no need for further cardiac workup at this time." Teaching & Discussion Pre-Anesthesia Teaching/Discussion Notes: Instructed NPO after midnight before surgery, except medications with 15 cc of water. Medication instructions provided according to the PAT guidelines. History Surgery Operation Date: 08/15/18 07:15 Proposed Procedures p Right Total Knee Arthroplasty - Julio Aburto DO Height/Weight Height: 5 ft 11 in Weight: 93 kg Allergies Allergy/AdvReac Type Severity Reaction Status Date / Time Leohfdh-Rdi-Ujs Reductase AdvReac Mild "Muscle Verified 07/12/18 08:03 Inhibitor aches" Medications Home Medications Medication Instructions Recorded Confirmed Last Taken aspirin 81 mg PO QAM #0 01/13/18 07/12/18 02/13/18 09:00 metoprolol succinate 25 mg PO QAM #0 tab 01/13/18 07/12/18 02/14/18 05:00 Past Medical History Medical History Atrial fibrillation HX OF AFIB /FROM LYMES/RESOLVED AFTER 5TH ABLATION Chronic back pain Degenerative disc disease History of cancer "bladder wall" History of prostate cancer Hyperlipidemia Hypertension Lyme disease Osteoarthritis Urinary incontinence Past Family History Family History Brother History of cancer Past Surgical History Surgical History History of cardiac radiofrequency ablation x5 [facility] last one 07/2008 History of carpal tunnel release of both wrists History of colonoscopy History of lumbar fusion L3-4 (FEB 2018) History of open reduction and internal fixation (ORIF) procedure Right femur History of prostatectomy 01/2017- Grade 1 View - MAC #3, ETT #7.5 History of repair of rotator cuff Right History of total hip arthroplasty Right Hip then Revision done (MRSA) Hx of arthroscopy of right knee x3 Hx of fusion of cervical spine x2 Status post hardware removal Right Hip hardware removal Past Anesthesia History No Hx of Anesthesia Complications and No Family Hx of Anesthesia Complications History of PONV No Motion Sickness Screening History of Motion Sickness: No Social History Smoking Status: Never smoker Do You Dip or Chew Tobacco: No Hx Alcohol Use: Yes Alcohol type: beer alcohol intake frequency: other Alcohol Intake Frequency Comment: 6 PACK A WEEK Hx Substance Use: No substance use type: does not use Exercise / Class Metabolic Activity II 4-5 Yardwork/Stairs/Walk up hill (Able to climb FOS. Walks a few times a week. Does PT exercises a few times a week to prepare for surgery. Denies CP or SOB. ) Review of Systems Patient denies chest pain, shortness of breath, dyspnea on exertion, reflux, cough, wheezing, palpitations. + joint pain (knee, back, bilateral shoulders) Physical Exam Vital Signs BP: 142/97 (patient reports that PCP has told him he has white coat hypertension before, and that he is stressed because he just "settled a conflict before he came in") P: 97 R: 18 T: 98.6 SPO2: 95% on RA Constitutional Anxious, restless ENMT Mouth: + poor dentition Thyromental Distance: > or= 3.5 Finger Breadths (4) Mallampati Class: I Neck normal visual inspection and trachea midline Respiratory normal respiratory effort Auscultation: lungs clear to auscultation bilaterally Cardiovascular Rate/Rhythm: regular rate and regular rhythm Heart Sounds: no murmur Vessels: no carotid bruit Neurologic moves all extremities Psychiatric Orientation: alert and oriented x 3 Testing Electrocardiogram Date: 07/21/18 Findings: + NSR @ (88) Chest X-Ray Date: 07/21/18 Findings: + NAD Echocardiogram Date: 09/08/12 EF: 60% LV Function: normal RWMA: + none Valvular Disease: + no significant valvular disease Laboratory Results 07/21/18 11:20 07/21/18 11:20 Blood Type A Positive 07/21/18 11:20 Antibody Screen NEGATIVE 07/21/18 11:20 PT 10.8 Seconds (9.0-12.0) 07/21/18 11:20 INR 1.1 (0.9-1.1) 07/21/18 11:20 APTT 23.7 Seconds (21.0-31.0) 07/21/18 11:20 Hemoglobin A1c 5.4 % (4.5-5.6) 07/21/18 11:20 Urine Color Yellow 07/21/18 11:20 Urine Appearance Clear (Clear) 07/21/18 11:20 Urine pH 5.0 (4.5-7.5) 07/21/18 11:20 Ur Specific [place] 1.021 (1.000-1.030) 07/21/18 11:20 Urine Protein Negative (Negative) 07/21/18 11:20 Urine Glucose (UA) Negative (Negative) 07/21/18 11:20 Urine Ketones Negative (Negative) 07/21/18 11:20 Urine Nitrite Negative (Negative) 07/21/18 11:20 Ur Leukocyte Esterase Negative (Negative) 07/21/18 11:20
--- NOTE | 2018-07-21 11:33 | PAT Medication Instructions ---
Medication Instructions Date of Service July 21, 2018 Home Medications aspirin 81 mg PO QAM metoprolol succinate 25 mg PO QAM Take morning of surgery With a small sip of water, OTHERWISE NOTHING TO EAT OR DRINK AFTER MIDNIGHT: aspirin 81 mg PO QAM metoprolol succinate 25 mg PO QAM Other Notes If you have any questions please call us at [phone] or [phone] or [phone] or [phone]
[2018-07-21 11:56] LABS: Basophils # (auto) 0.01 K/uL (0-0.2); Basophils % (auto) 0.2 %; Eosinophils # (auto) 0.02 K/uL (0-0.5); Eosinophils % (auto) 0.4 %; Hematocrit (blood only) 43.9 % (42-52); Hemoglobin 15.3 g/dL (14.0-18.0); Lymphocytes # (auto) 1.61 K/uL (1.2-3.4); Lymphocytes % (auto) 35.1 %; Mean Corpuscular Hgb Conc 34.9 g/dL (32-36); Mean Corpuscular Volume 92.4 fL (80-100); Mean Platelet Volume 11.4 fL (7.4-10.4); Monocytes # (auto) 0.33 K/uL (0.11-0.59); Monocytes % (auto) 7.2 %; Neutrophils # (auto) 2.62 K/uL (1.4-6.5); Neutrophils % (auto) 57.1 %; Platelet Count 155 K/uL (130-400); RDW Coefficient of Variation 13.2 % (11.5-14.5); RDW Standard Deviation 44.6 fL (36.4-46.3); Red Blood Count 4.75 M/uL (4.7-6.1); White Blood Count 4.59 K/uL (4.8-10.8)
[2018-07-21 11:58] LABS: Appearance Urine Clear (Clear); Bilirubin Urine Negative (Negative); Blood Urine Negative (Negative); Color Urine Yellow; Glucose Urine UA Negative (Negative); Ketones Urine Negative (Negative); Leukocyte Esterase Urine Negative (Negative); Nitrite Urine Negative (Negative); Protein Urine Negative (Negative); Specific Gravity Urine 1.021 (1.000-1.030); Urobilinogen Urine Negative (Negative)
[2018-07-21 12:06] LABS: Estimated Average Glucose 108 mg/dl; Hemoglobin A1C 5.4 % (4.5-5.6)
[2018-07-21 12:14] LABS: INR 1.1 (0.9-1.1); Partial Thromboplastin Ratio 0.9; Partial Thromboplastin Time 23.7 Seconds (21.0-31.0); Prothrombin Time 10.8 Seconds (9.0-12.0)
--- NOTE | 2018-07-21 12:16 | XRay Report ---
XR chest Pre-admission PA/Lat CLINICAL HISTORY: Preoperative evaluation. COMPARISON STUDY: Chest radiograph November 22, 2016. FINDINGS: Postoperative findings within the lower cervical and upper thoracic spine are noted. There is no pneumothorax or pleural effusion. There is no consolidation or evidence for pulmonary edema. Ca rdiomediastinal silhouette is unremarkable. Appearance of the chest is unchanged. IMPRESSION: No acute cardiopulmonary findings. Electronically signed by: Austin Prado M.D. 07/21/2018 12:15 PM
[2018-07-21 14:14] LABS: Albumin Level 3.8 gm/dl (3.4-5.0); BUN Creatinine Ratio 13.4 (10-20); Calcium 8.9 mg/dl (8.5-10.1); Creatinine Clr Calc Pharmacy 97.6 ml/min; Est GFR (African American) 101.1; Est GFR (Non-African American) 87.3; Potassium 3.8 mmol/L (3.5-5.1)
[~2018-08-15 07:24] MED LIST changes: +ACETAMINOPHEN 500 MG TAB PO SCH; -ASPCH81X PO; +BUPIVACAINE 0.5 % 5 MG/1 ML PF 10ML VIAL ONE; +CEFAZOLIN 2000MG 2,000 MG/15 ML SYR IV SCH; +CeleBREX 200 MG CAP PO SCH; +FAMOTIDINE 20 MG TAB PO SCH; +GABAPENTIN 300 MG x 2 PO SCH; +LR 500ML BOLUS, THEN 15ML/HR IV SCH; -METO25TA3 PO; +METOCLOPRAMIDE HCL 10 MG TABLET PO SCH; +ROPIVACAINE 0.5% 5 MG/ML 30 ML VIAL ONE; +ROPIVACAINE 0.5% HCL/PF 150 MG, BUPIVACAINE 0.5% MPF 30 ML, EPINEPHrine 30MG/30ML (OR U... INFIL SCH; +TRANEXAMIC ACID 1,000 MG **IV Intra-op IV SCH; +TRANEXAMIC ACID 1,000 MG **IV Pre-op IV SCH; +dexAMETHasone 4 MG TAB PO SCH
[2018-08-15] MEDS ORDERED: PROPOFOL IV EMULSION 10 MG/ML 20 ML VIAL IV ONE ×2 (07:51→10:42)
[2018-08-15] MEDS ORDERED: MIDAZOLAM HCL 1 MG/ML 2ML VIAL ONE ×2 (07:51→10:13)
[2018-08-15] MEDS ORDERED: LIDOCAINE HCL 2% 2 ML VIAL/AMP(20MG/ML) INFIL ONE (07:51)
[2018-08-15] MEDS ORDERED: GLYCOPYRROLATE 0.2 MG/ML VIAL ONE (07:58)
--- NOTE | 2018-08-15 08:42 | History & Physical Bridge Note ---
Date of Service August 15, 2018 History & Physical Bridge Note I have examined the patient, reviewed the History & Physical and in the interval since the performance of the History & Physical I have noted the following changes of clinical significance: no changes noted
[2018-08-15] MEDS ORDERED: POVIDONE-IODINE OP SOLN 30 ML BTL ONE (09:19)
[2018-08-15] MEDS ORDERED: BACITRACIN INJ 50,000 UNIT VIAL ONE (09:19)
[2018-08-15] MEDS ORDERED: ORTHO JOINT ANESTHETIC ONE (09:19)
[2018-08-15] MEDS ORDERED: fentaNYL citrate 100 MCG/2 ML VIAL ONE (09:59)
[2018-08-15] MEDS ORDERED: ePHEDrine sulfate 50 MG/ML AMP IV PRN (10:11)
[2018-08-15] MEDS ORDERED: PHENYLEPHRINE 100MCG/ML 5ML SYR IV PRN (10:11)
[2018-08-15] MEDS ORDERED: KETOROLAC 30 MG/ML VIAL IV PRN (10:11)
[2018-08-15] MEDS ORDERED: ATROPINE SULFATE 0.1 MG/ML 10ML SYR IV PRN (10:11)
[2018-08-15] MEDS ORDERED: ONDANSETRON INJ 2 MG/ML 2 ML VIAL IV PRN ×2 (10:11→11:50)
[2018-08-15] MEDS ORDERED: HYDROmorphone INJ 1 MG/ML SYRINGE IV PRN ×2 (10:11→11:50)
--- NOTE | 2018-08-15 10:53 | Operative Report ---
Post Operative Report Pre & Post Diagnosis Severe end-stage tricompartmental DJD right knee Operation Date: 08/15/18 09:55 <No data on this case meets the specified criteria> Procedure Right total knee arthroplasty utilizing [employer]on [employer] Nephew patient matched total knee arthroplasty size 6 femur 6 tibia 13 polyethylene 38 oval patella Operation Date: 08/15/18 09:55 <No data on this case meets the specified criteria> Surgeon Julio Aburto DO Metal Sorter Nathanael CHAMBERS Estimated Blood Loss 5 Findings Consistent with Post-Op Diagnosis Patient presents with severe end-stage chronic more mild degenerative joint disease about the right knee no response to conservative management times surgery patient noted subchondral cystic changes marginal osteophytes [id number] eburnation bone with bone exposure and varus alignment Specimens Bone and cartilage Drains Medium bore Hemovac Complications none Disposition Accompanied Patient To Recovery: No Disposition: Recovery Room Indications Patient presents as a 58-year-old white male being seen to evaluate points of severe end-stage tricompartmental degenerative joint disease is been no response to conservative therapy including physical therapy anti-inflammatories relative rest activity medication corticosteroid injections Visco supplementations presents for total knee arthroplasty times surgery the above findings were noted patient has a failed all attempts at conservative management presents today for right total knee arthroplasty Description of Procedure After proper prepping and draping of the Right lower extremity anterior midline incision was made over the region of the extensor extensor mechanism after meticulous hemostasis was obtained and maintained in subcutaneous tissues a medial parapatellar incision was made The patella was subluxed lateralward the medial lateral gutter were cleaned from any hypertrophic synovitis and scar tissue of the distal femoral block was placed and the distal femoral osteotomy cut was made subsequently the chamfers anterior and posterior osteotomy cuts were made utilizing the 4-in-1 block the tibia was subsequently subluxed anteriorward medial and ateral meniscal remnants were excised in their entirety remnants of the anterior and posterior cruciate ligaments were excised in their entirety excellent exposure of the proximal tibia was obtained the tibial osteotomy guide was placed on the proximal tibial osteotomy cut was made once again the knee was irrigated with copious amounts of sterile saline solution the patella was subsequently everted lateralward thickened scar tissue around the patella was removed the patella was subsequently cut utilizing a freehand technique and was drilled prepared for final preparation and placement of patella socially flexion-extension gaps were checked and the equal and symmetric trials were placed to the appropriate femoral and tibial trials with poly-spacer being placed for equal flexion and extension gaps and full range of motion in cluding extension to 0 and flexion to 140 the trial components after having been taken to recovery range of motion was subsequently removed meticulous hemostasis was obtained and maintained subsequently a knee block injection of joint cocktail including ropivacaine 0.5% 150 mg. Bupivacaine 0.5% epinephrine 1-200,030 mL's toradol 30 mg dexamethasone 4 mg ketamine 10 mg clonidine 100 micrograms normal saline solution 30 mg was infiltrated into the soft tissues of the posterior knee medial lateral gutters and periosteal synovium special attention was paid to protect neurovascular structures at all times subsequently trial components having been removed the knee was irrigated with sterile saline solution. debris was removed the proximal tibia was subsequently prepared and was made ready for the placement of the tibial component tibial component was also cemented and tamped into position the femoral component was subsequently placed and cemented in the position the patellar component was subsequently cemented in position because hemostasis once again obtained and maintained wound having been thoroughly irrigated with debridement and debridement lavage was performed as well as a medial parapatellar incision closed with #1 Vicryl in interrupted fashion subcutaneous was closed with #2 Vicryl skin was closed with skin clips. PA-C was necessary for prepping and drapping as well as wound closure of deep fascia Sub cutaneous tissue and skin and was necessary for the case. A sterile compressive dressing was placed patient was taken to recovery in stable condition of report dictated by Lamonte I attest to the content of the Intraoperative Record and any orders documented therein. Any exceptions are noted below. I attest to the content of the Intraoperative Record and any orders documented therein. Any exceptions are noted below.
[2018-08-15] MEDS ORDERED: METOCLOPRAMIDE HCL INJ 5 MG/ML 2 ML VIAL IV PRN (11:50)
[2018-08-15] MEDS ORDERED: NALOXONE HCL 0.4 MG/1 ML VIAL/CARP IV PRN (11:50)
[2018-08-15] MEDS ORDERED: MAGNESIUM HYDROXIDE SUSP 30 ML UDC PO PRN (11:50)
[2018-08-15] MEDS ORDERED: BISACODYL 10 MG SUPP PR PRN (11:50)
--- NOTE | 2018-08-15 12:09 | XRay Report ---
XR knee RT 2V routine CLINICAL HISTORY: Surgical Post Op COMPARISON: Leg length study July 21, 2018. FINDINGS: Old, healed fracture the distal shaft of the right femur is incidentally noted. Alignment of the total right knee arthroplasty is anatomic. There is no fracture or unexpected radiopaque forei gn body. Surgical drains are in place. IMPRESSION: Expected findings following total right knee arthroplasty. Electronically signed by: Austin Prado M.D. 08/15/2018 12:08 PM
--- NOTE | 2018-08-15 12:23 | Anesthesiology Progress Note ---
Date of Service August 15, 2018 Anesthesia Post Procedure Vital Signs Vital Signs: Temp Pulse Pulse Resp BP Pulse Ox 08/15/18 12:15 61 14 109/69 94 08/15/18 12:05 37 C 62 15 114/71 96 08/15/18 11:55 62 15 106/69 98 08/15/18 11:45 63 20 105/66 100 08/15/18 11:38 36.6 C 66 18 100/63 99 08/15/18 08:27 36.5 C 76 20 155/90 H 96 Pain Intensity Right Knee: Pain Intensity: 7 Notes Mental Status: alert / awake / arousable Patient Amnestic to Procedure: Yes Nausea / Vomiting: adequately controlled Pain: adequately controlled Airway Patency, RR, SpO2: stable & adequate BP & HR: stable & adequate Hydration State: stable & adequate Neuraxial Anesthesia: was administered and sensory block is resolving Anesthetic Complications: no major complications apparent
[2018-08-15] MEDS: ACETAMINOPHEN 500 MG TAB PO SCH ×2 (15:16→22:28)
[2018-08-15] MEDS: SODIUM CHLORIDE 0.9% 1000ML 1,000 ML IV SCH ×2 (15:16→23:44)
[2018-08-15] MEDS: CEFAZOLIN 2000MG 2,000 MG/15 ML SYR IV SCH (19:01)
[2018-08-15] MEDS: KETOROLAC 30 MG/ML VIAL IV SCH ×2 (19:01→23:44)
[2018-08-15] MEDS: OXYCODONE HCL IR 5 MG TAB (IMMEDIATE RELEASE) PO PRN (20:57)
[2018-08-15] MEDS: ASPIRIN 81 MG ECTAB PO SCH (20:58)
[2018-08-15] MEDS: DOCUSATE SODIUM 100 MG CAP PO SCH (20:58)
[2018-08-15] MEDS ORDERED: CeleBREX 200 MG CAP PO SCH (21:00)
[2018-08-15] MEDS ORDERED: SENNA 8.6 MG TAB PO SCH (21:00)
[2018-08-16] MEDS: CEFAZOLIN 2000MG 2,000 MG/15 ML SYR IV SCH (01:36)
[2018-08-16] MEDS: KETOROLAC 30 MG/ML VIAL IV SCH ×2 (05:52→10:55)
[2018-08-16] MEDS: ACETAMINOPHEN 500 MG TAB PO SCH (05:52)
--- NOTE | 2018-08-16 07:36 | Orthopedic Progress Note ---
Date of Service August 16, 2018 Assessment & Plan (1) Status post total right knee replacement: POD #1 s/p Right TKA pt/ot dvt proph with ANN-MARIE/SCD/ASA plan for d/c home later today, will likely be dischaged with hemovac, is considering HHPT Subjective POD #1 s/p Right TKA denies CP/SOB, denies Fever/chills, no N/V. current pain /10 Physical Exam Vital Signs (Past 24 Hours): Last Vital Signs Temp 36.9 C 08/16/18 07:21 Pulse 89 08/16/18 07:21 Resp 18 08/16/18 07:21 BP 118/68 08/16/18 07:21 Pulse Ox 97 08/16/18 07:21 Constitutional: WD/WN, vitals as above no acute distress Musculoskeletal: NVDI, calf SNT, negative viola sign. DP palpable, able to wiggle toes/ankle movement without difficulty. dressing clean dry and intact. Vital Signs Temp 36.9 C 08/16/ 07:21 Pulse 89 08/16/18 07:21 Resp 18 08/16/18 07:21 BP 118/68 08/16/18 07:21 Pulse Ox 97 08/16/18 07:21 Intake & Output //08/16/18 08/16/18 18:59 06:59 18:59 Intake Total 1730 / 4846.667 3116.667 / 4846.66 7 Output Total 695 / 2095 1400 / 2095 Balance 1035 / 2751.667 1716.667 / 2751.66 7 Weight 92.533 kg Intake: IV 810 / 2426.667 1616.667 / 2426.66 7 Lr 1,000 ml @ 15 mls/hr IV . 700 / 700 Q24H WALT Rx#:[id number] Nss 1000ML 1,0 00 ml @ 100 mls/ 1506.667 / 1506.66 7 hr IV .Q10H SC H Rx#:[id number] Cyklokapron 1, 000 mg In Sodium 110 / 110 Chloride 100 m l @ 660 mls/hr IV 0630 WALT Rx#:[id number] IV Perioperative 800 / 800 Oral 120 / 1620 1500 / 1620 Output: Urine 625 / 1425 800 / 1425 Estimated Blood Loss 5 / 5 Drain Output 65 / 5 600 / 665 Right Knee Hem ovac 65 / 5 600 / 665 Other: # Unmeasured Voi ds 2 Results & Data Laboratory Results Laboratory Results WBC 4.59 K/uL (4.8-10.8) L 07/21/18 11:20 RBC 4.75 M/uL (4.7-6.1) 07/21/18 11:20 Hgb 15.3 g/dL (14.0-18.0) 07/21/18 11:20 Hct 43.9 % (42-52) 07/21/18 11:20 MCV 92.4 fL (80-100) 07/21/18 11:20 MCH 32.2 pg (25-34) 07/21/18 11:20 MCHC 34.9 g/dL (32-36) 07/21/18 11:20 RDW Std Deviation 44.6 fL (36.4-46.3) 07/21/18 11:20 RDW Coeff of Rebecca 13.2 % (11.5-14.5) 07/21/18 11:20 Plt Count 155 K/uL (130-400) 07/21/18 11:20 MPV 11.4 fL (7.4-10.4) H 07/21/18 11:20 Immature Gran % (Auto) 0.0 % 07/21/18 11:20 Neut % (Auto) 57.1 % 07/21/18 11:20 Lymph % (Auto) 35.1 % 07/21/18 11:20 Sheridan % (Auto) 7.2 % 07/21/18 11:20 Eos % (Auto) 0.4 % 07/21/18 11:20 Baso % (Auto) 0.2 % 07/21/18 11:20 Immature Gran # (Auto) 0.00 K/uL (0.00-0.02) 07/21/18 11:20 Neut # (Auto) 2.62 K/uL (1.4-6.5) 07/21/18 11:20 Lymph # (Auto) 1.61 K/uL (1.2-3.4) 07/21/18 11:20 Sheridan # (Auto) 0.33 K/uL (0.11-0.59) 07/21/18 11:20 Eos # (Auto) 0.02 K/uL (0-0.5) 07/21/18 11:20 Baso # (Auto) 0.01 K/uL (0-0.2) 07/21/18 11:20 PT 10.8 Seconds (9.0-12.0) 07/21/18 11:20 INR 1.1 (0.9-1.1) 07/21/18 11:20 APTT 23.7 Seconds (21.0-31.0) 07/21/18 11:20 PTT Ratio 0.9 07/21/18 11:20 Sodium 138 mmol/L (136-145) 07/21/18 11:20 Potassium 3.8 mmol/L (3.5-5.1) 07/21/18 11:20 Chloride 107 mmol/L (98-107) 07/21/18 11:20 Carbon Dioxide 24 mmol/L (21-32) 07/21/18 11:20 Anion Gap 7.0 (3-11) 07/21/18 11:20 BUN 13 mg/dl (7-18) 07/21/18 11:20 Creatinine 0.95 mg/dl (0.6-1.4) 07/21/18 11:20 Est Cr Clr Drug Dosing 97.6 ml/min 07/21/18 11:20 Est GFR ( Amer) 101.1 07/21/18 11:20 Est GFR (Non-Af Amer) 87.3 07/21/18 11:20 BUN/Creatinine Ratio 13.4 (10-20) 07/21/18 11:20 Glucose 95 mg/dl (70-99) 07/21/18 11:20 Estimat Average Glucose 108 mg/dl 07/21/18 11:20 Hemoglobin A1c 5.4 % (4.5-5.6) 07/21/18 11:20 Calcium 8.9 mg/dl (8.5-10.1) 07/21/18 11:20 Albumin 3.8 gm/dl (3.4-5.0) 07/21/18 11:20 Urine Color Yellow 07/21/18 11:20 Urine Appearance Clear (Clear) 07/21/18 11:20 Urine pH 5.0 (4.5-7.5) 07/21/18 11:20 Ur Specific [place] 1.021 (1.000-1.030) 07/21/18 11:20 Urine Protein Negative (Negative) 07/21/18 11:20 Urine Glucose (UA) Negative (Negative) 07/21/18 11:20 Urine Ketones Negative (Negative) 07/21/18 11:20 Urine Blood Negative (Negative) 07/21/18 11:20 Urine Nitrite Negative (Negative) 07/21/18 11:20 Urine Bilirubin Negative (Negative) 07/21/18 11:20 Urine Urobilinogen Negative (Negative) 07/21/18 11:20 Ur Leukocyte Esterase Negative (Negative) 07/21/18 11:20 Blood Type A Positive 07/21/18 11:20 Antibody Screen NEGATIVE 07/21/18 11:20 Diagnostic Findings R knee RT 2V routine CLINICAL HISTORY: Surgical Post Op COMPARISON: Leg length study July 21, 2018. FINDINGS: Old, healed fracture the distal shaft of the right femur is incidentally noted. Alignment of the total right knee arthroplasty is anatomic. There is no fracture or unexpected radiopaque foreign body. Surgical drains are in place. IMPRESSION: Expected findings following total right knee arthroplasty.
[2018-08-16] MEDS: DOCUSATE SODIUM 100 MG CAP PO SCH (07:39)
[2018-08-16] MEDS: ASPIRIN 81 MG ECTAB PO SCH (07:39)
[2018-08-16 08:46] LABS: Hematocrit (blood only) 36.3 % (42-52); Hemoglobin 12.5 g/dL (14.0-18.0); Mean Corpuscular Hgb Conc 34.4 g/dL (32-36); Mean Corpuscular Volume 93.3 fL (80-100); Mean Platelet Volume 11.9 fL (7.4-10.4); Platelet Count 136 K/uL (130-400); RDW Coefficient of Variation 13.3 % (11.5-14.5); RDW Standard Deviation 45.1 fL (36.4-46.3); Red Blood Count 3.89 M/uL (4.7-6.1); White Blood Count 10.89 K/uL (4.8-10.8)
[2018-08-16] MEDS ORDERED: MULTIVITAMIN TAB PO SCH (09:00)
[2018-08-16] MEDS ORDERED: METOPROLOL SUCC 25MG EXT REL TAB PO SCH (09:00)
[2018-08-16 09:24] LABS: BUN Creatinine Ratio 16.2 (10-20); Calcium 8.4 mg/dl (8.5-10.1); Creatinine Clr Calc Pharmacy 105.1 ml/min; Potassium 3.8 mmol/L (3.5-5.1)
[2018-08-16] MEDS: OXYCODONE HCL IR 5 MG TAB (IMMEDIATE RELEASE) PO PRN (10:56)
--- NOTE | 2018-08-16 11:15 | Anesthesiology Progress Note ---
Date of Service August 16, 2018 Anesthesia Post Procedure Vital Signs Vital Signs: Temp Pulse Pulse Resp BP Pulse Ox 08/16/18 10:57 36.6 C 78 18 132/74 96 08/16/18 07:21 36.9 C 89 18 118/68 97 08/16/18 02:41 36.6 C 75 20 110/61 97 08/15/18 23:18 36.5 C 74 20 121/71 93 08/15/18 19:49 36.7 C 79 18 129/75 97 08/15/18 15:40 36.4 C L 84 18 145/79 H 92 08/15/18 14:32 36.4 C L 69 20 114/69 96 08/15/18 13:28 36.4 C L 72 18 116/70 95 08/15/18 12:57 66 16 116/68 95 08/15/18 12:30 36.5 C 64 16 119/78 96 08/15/18 12:15 61 14 109/69 94 08/15/18 12:05 37 C 62 15 114/71 96 08/15/18 11:55 62 15 106/69 98 08/15/18 11:45 63 20 105/66 100 08/15/18 11:38 36.6 C 66 18 100/63 99 Pain Intensity Right Knee: Pain Intensity: 5 Notes Mental Status: alert / awake / arousable and participated in evaluation Patient Amnestic to Procedure: Yes Nausea / Vomiting: adequately controlled Pain: adequately controlled Airway Patency, RR, SpO2: stable & adequate BP & HR: stable & adequate Hydration State: stable & adequate Neuraxial Anesthesia: was administered and sensory block resolved Anesthetic Complications: no major complications apparent
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
== END 2018-08-16 13:49 | disposition home health service (06) | DRG 470 ==
LOC: ASU 07:24 → 3E 11:40

== ENCOUNTER 2020-05-21 15:32 | Inpatient (IN) ==
[2020-05-21] MEDS ORDERED: OPTIRAY 320 125ml IV ONE (15:35)
[2020-05-21] MEDS ORDERED: LABETALOL HCL IV 5 MG/ML 20ML IV ONE (15:40)
[2020-05-21 15:49] LABS: Basophils # (auto) 0.02 K/uL (0-0.2); Basophils % (auto) 0.3 %; Eosinophils % (auto) 1.5 %; Hematocrit (blood only) 44.7 % (42-52); Hemoglobin 15.2 g/dL (14.0-18.0); Immature Granulocytes # (auto) 0.02 K/uL (0.00-0.02); Immature Granulocytes % (auto) 0.3 %; Lymphocytes # (auto) 1.67 K/uL (1.2-3.4); Lymphocytes % (auto) 24.4 %; Mean Corpuscular Hemoglobin 32.9 pg (25-34); Mean Corpuscular Volume 96.8 fL (80-100); Mean Platelet Volume 12.4 fL (7.4-10.4); Monocytes # (auto) 0.54 K/uL (0.11-0.59); Monocytes % (auto) 7.9 %; Neutrophils % (auto) 65.6 %; Platelet Count 144 K/uL (130-400); RDW Coefficient of Variation 12.8 % (11.5-14.5); RDW Standard Deviation 44.7 fL (36.4-46.3); Red Blood Count 4.62 M/uL (4.7-6.1); White Blood Count 6.85 K/uL (4.8-10.8)
--- NOTE | 2020-05-21 15:49 | CT Scan Report ---
CT OF THE HEAD WITHOUT CONTRAST CLINICAL HISTORY: Stroke-Like Symptoms COMPARISON STUDY: No previous studies for comparison. TECHNIQUE: Helical axial images of the head were obtained without IV contrast. Automated exposure con trol was utilized for the study. A dose lowering technique was utilized adhering to the principles o f ALARA. FINDINGS: No acute intracranial hemorrhage, midline shift or mass effect is present. Note is made of a dense left middle cerebral artery. Asymmetric loss of caro-white differentiation is noted within po rtions of the left MCA territory, including the left basal ganglia. Ventricular system is unremarkabl e. Basal cisterns are patent. There are no extra-axial collections. IMPRESSION: Findings consistent with a dense left MCA sign which represents thromboembolic material within the left middle cerebral artery with acute infarct within the left middle cerebral artery terr itory. No acute intracranial hemorrhage. No mass effect. Findings discussed with Dr. Abdul at time of dictation. ACT 112: Negative or not required by law. Electronically signed by: Austin Prado M.D. 05/21/2020 3:48 PM
[2020-05-21] MEDS ORDERED: TPA for Stroke IV STA (15:57)
--- NOTE | 2020-05-21 15:57 | CT Scan Report ---
NECK CTA HISTORY: Stroke Like Symptoms TECHNIQUE: Multiaxial CT images of the neck were performed following the intravenous administration o f contrast to evaluate the major cervical vessels. Maximum intensity projection images were also obta ined. All measurements were calculated based on NASCET criteria. A dose lowering technique was utili zed adhering to the principles of ALARA. COMPARISON STUDY: None. FINDINGS: The aortic arch and proximal great vessels are widely patent. There is no significant sten osis, occlusion, or dissection identified within the bilateral common carotid, internal carotid, or v ertebral arteries. Posterior fusion from C6 through T3. Anterior cervical discectomy and fusion from C6 through T1. Surgical clips within the right neck base. Minimal calcified plaque within the left ca rotid bulb. IMPRESSION: No significant stenosis, occlusion, or dissection identified within the carotid or vertebral arteries . ACT 112: Negative or not required by law. Electronically signed by: Alejandro Cabral M.D. 05/21/2020 3:56 PM
--- NOTE | 2020-05-21 15:58 | CT Scan Report ---
CTA ANGIOGRAPHY OF THE HEAD CLINICAL HISTORY: Stroke Like Symptoms COMPARISON STUDY: No previous studies for comparison. TECHNIQUE: Helical axial images of the head were obtained following uneventful intravenous administr ation of 119 cc of Optiray 320. Sagittal and coronal reconstructions were viewed as well as maximal i ntensity projections on an independent 3-D workstation. Automated exposure control was utilized for the study. A dose lowering technique was utilized adhering to the principles of ALARA. FINDINGS: Note is made of abrupt cut off of the distal portion of the left internal carotid artery wi th occlusion of the proximal aspect of the left A1 segment as well as occlusion of the proximal to mi d aspect of the left middle cerebral artery. There is minimal distal reconstitution within the left M CA territory. No additional foci of abrupt vessel cut off or identified. The posterior circulation is intact. There is no intracranial aneurysm. No acute intracranial hemorrhage, midline shift or mass e ffect is present. Note is made of extensive hypodensity within the left MCA territory consistent with an acute infarct which involves the left basal ganglia. IMPRESSION: Abrupt cut off of the left ICA terminus, proximal to mid left middle cerebral artery and proximal left A1 segment due to thromboembolism. Minimal distal reconstitution within the left MCA d istribution with extensive hypodensity within the left MCA territory, including the basal ganglia, co nsistent with a large acute infarct. Findings discussed with Dr. Abdul at time of dictation. ACT 112: Negative or not required by law. Electronically signed by: Austin Prado M.D. 05/21/2020 3:57 PM
[2020-05-21] MEDS ORDERED: No Aspirin within 24 hrs of TPA for Stroke PO SCH (16:00)
[2020-05-21 16:06] LABS: Alanine Aminotransferase 33 U/L (12-78); Albumin Level 3.9 gm/dl (3.4-5.0); Aspartate Aminotransferase 27 U/L (15-37); BUN Creatinine Ratio 21.6 (10-20); Blood Urea Nitrogen 22 mg/dl (7-18); Calcium 9.1 mg/dl (8.5-10.1); Carbon Dioxide 31 mmol/L (21-32); Chloride 103 mmol/L (98-107); Est GFR (African American) 93.7; Est GFR (Non-African American) 80.9; Glucose 85 mg/dl (70-99); Magnesium 2.1 mg/dl (1.8-2.4); Sodium 139 mmol/L (136-145)
[2020-05-21] MEDS ORDERED: Alteplase Bolus 9 MG in SYRINGE 0 ML IV ONE (16:07)
[2020-05-21] MEDS ORDERED: ALTEPLASE, RECOMBINANT 81 MG in EMPTY BAG 0 ML IV ONE (16:08)
[2020-05-21] MEDS ORDERED: PRIMARY PLUMSET, PE LINED TUBING, 113 IN, NON-DEHP (2260-0500) IV ONE (16:08)
[2020-05-21 16:11] LABS: Albumin Globulin Ratio 0.9 (0.9-2); Alkaline Phosphatase 67 U/L (45-117); Bilirubin,Total 0.7 mg/dl (0.2-1); Globulin 4.4 gm/dl (2.5-4.0); Total Protein 8.3 gm/dl (6.4-8.2); Troponin I < 0.015 ng/ml (0-0.045)
[2020-05-21 16:13] LABS: Base Excess VBG 0.7 mEq/L; HCO3 VBG 27 mmol/L; PCO2 VBG 51 mmHg (38-50); PO2 VBG 32 mmHg; pH VBG 7.35 (7.36-7.41)
[2020-05-21 16:19] LABS: Oxygen Saturation VBG < 60.0 %
--- NOTE | 2020-05-21 16:25 | XRay Report ---
XR chest 1V portable HISTORY: Stroke Like Symptoms COMPARISON: Chest 07/21/2018. FINDINGS: The heart is mildly enlarged. There is mild central pulmonary vascular congestion without o vert edema. No new focal lung consolidations to suggest pneumonia. No pleural effusions. No pneumotho rax. Cervical spinal fusion hardware. IMPRESSION: Cardiomegaly with mild central pulmonary vascular congestion without overt edema. ACT 112: Negative or not required by law. Electronically signed by: Alejandro Cabral M.D. 05/21/2020 4:23 PM
--- NOTE | 2020-05-21 17:02 | History & Physical Report ---
Date of Service May 21, 2020 Assessment & Plan (1) Acute ischemic left MCA stroke: Chepe Boykin is a 60-year-old male with a past medical history of atrial fibrillation in 2008 with no known subsequent recurrence not on anticoagulation, and a [id number] of 1 last assessed on 12/24/2019, HTN, JANESSA, CAD, and HLD who presents with sudden onset R sided facial droop, R sided weakness, and dysarthria And who is admitted for left MCA stroke. Left MCA stroke CTA shows left ICA proximal to mid occlusion, left MCA occlusion, left proximal A1 occlusion with minimal distal reconstitution. CThead: Consistent with dense left MCA stroke, no intracranial hemorrhage, no mass-effect Echo pending CTA neck shows no stenosis TPA bolus at 1559 hrs. TPA drip started at 1604 hrs. Clinical improvement with return of right lower extremity strength, right upper extremity remains flaccid. Complete expressive aphasia Repeat CThead at 12 hours Patient recommended for transfer to tertiary care, unable due to snowstorm. Recommend transfer and reassessment for thrombectomy as soon as able Routine post TPA orders entered Blood pressure control, labetalol 10 mg every 15 as needed to maintain >180/105 No antiplatelet/anticoagulants in first 24 hours Statin deferred due to prior history of intolerance. Discussed with neurology Neurology consulted Admit to ICU N.p.o. Lipid panel/A1c pending Hypertension Post stroke blood pressure management as above Hold KEG FILLER metoprolol Paroxysmal atrial fibrillation Echo pending Regular rhythm on admission Not on anticoagulation for [id number] 1 KEG FILLER Follow clinically at this time Hyperlipidemia Statin deferred as above Lipid panel pending History of prostate cancer Reportedly in remission following prostatectomy in 2017 PSA undetectable last 01/29/2020 Diet: N.p.o., NSS 80 cc/h DVT prophylaxis: Pharmacal prophylaxis contraindicated, SCDs Disposition: Admit to ICU CODE STATUS: Full code, unable to verify with patient/family at time of assessment (2) Multiple risk factors for coronary artery disease: (3) SI (stress incontinence), male: (4) Hyperlipidemia: (5) History of prostate cancer: (6) Hypertension: (7) Paroxysmal atrial fibrillation: (8) Obstructive sleep apnea: History of Present Illness Chief Complaint: R Sided Weakness, Aphasia Primary Care Provider: Terrie Elise DO Chepe Boykin is a 60-year-old male with a past medical history of atrial fibrillation in 2008 with no known subsequent recurrence not on anticoagulation, and a [id number] of 1 last assessed on 12/24/2019, HTN, JANESSA, CAD, and HLD who presents with sudden onset R sided facial droop, R sided weakness, and dysarthria which began abruptly at 12:50pm and who has CT imaging consistent with a large territory L MCA territory stroke unable to be flown/transported to tertiary care due to inclimate weather. Chepe was on the phone with a friend at 12:50 PM when he developed sudden aphasia. His friend was concerned and rushed over to visit him, he was found on the ground with complete right upper and lower extremity loss of strength/flaccid, right facial droop, and aphasia. He was transported emergently to [facility]. Stroke alert was called and patient received TPA bolus at 15[address] at [address] showed left proximalmid ICA, left MCA, and left proximal A1 segment occlusion consistent with stroke. Patient was not able to verbalize history due to aphasia.Stroke alert with [facility] was completed by ER providers, patient was recommended for transfer to tertiary care for thrombectomy, was unable to be transported due to snowstorm. Case was discussed with ICU provider. At time of bedside assessment patient is alert and gazes around the room and follows simple commands (squeeze my hand, lift yourleg), but not two-step or complex commands. Does not verbalize or attempt to verbalize. History greatly limited by expressive aphasia. Patient has a remote history of atrial fibrillation with no documented A. fib in the last 10 years per cardiology note. At last assessment had a chads 2 vascular score of 1, not on anticoagulation. Patient has a history of hyperlipidemia not on a statin due to intolerance of multiple statins with last trial in 2009 reproduced severe myalgias within 6 weeks. Patient has a history of JANESSA reportedly not on CPAP. Medical, surgical, social history reviewed in EMR not obtainable from patient due to expressive aphasia. Allergies Allergy/AdvReac Type Severity Reaction Status Date / Time Gdrkloe-Ytz-Zxp Reductase AdvReac Mild "Muscle Verified 01/29/20 07:25 Inhibitor aches" Home Medications Medication Instructions Recorded Confirmed Type metoprolol succinate 25 mg PO DAILY 08/21/19 05/21/20 History Past Med/Surg History Medical History (Updated 05/21/20 @ 19:37 by Elias Abdul) Arthritis of knee, degenerative History of prostate cancer Hyperlipidemia Hypertension Lumbar foraminal stenosis Lyme disease Obstructive sleep apnea Osteoarthritis Paroxysmal atrial fibrillation no problems since 2008. SI (stress incontinence), male Surgical History History of cardiac radiofrequency ablation x5 [facility] last one 07/2008 History of carpal tunnel release of both wrists History of lumbar fusion (02/2018) L3-4 (FEB 2018) History of open reduction and internal fixation (ORIF) procedure Right femur History of prostatectomy (01/25/17) 01/2017- Grade 1 View - MAC #3, ETT #7.5 History of repair of rotator cuff Right History of total hip arthroplasty (2013) Right Hip then Revision done Hx of arthroscopy of right knee x3 Hx of fusion of cervical spine x2 Status post hardware removal Right Hip hardware removal Status post total right knee replacement (08/15/18) Family History Brother History of cancer Father Prostate cancer Denies family history of Ovarian cancer Myocardial infarction Breast cancer Colorectal cancer Social History Smoking Status: Unknown if ever smoked Second Hand Exposure: No; Hx Alcohol Use: Yes Alcohol type: beer Hx Substance Use: No Preferred Language: Greek Communication Ability: Effective Visual Impairment: No Limitations Hearing Ability: Normal Us Marketing Director Required: No Beliefs That Will Affect Care: None and Denominational Denominational Beliefs: "NO CHURCH" Current Living Situation: Alone current occupational status: disabled Feels Safe at Home: Yes Childhood Exposure to Second-Hand Smoke: No caffeine: No Dental Care, Regularly: No Physical Activity Frequency: 3-4 Times per Week Physical Activity Frequency Comment: walk every other day and back exercises Seatbelt Use: always Sunscreen Use: No Assistive Devices: Cane and Glasses Review of Systems Review of Systems: Other Unobtainable due to aphasia Physical Exam Physical Exam: General: A&Ox3. NAD. Cooperative. HEENT: Atraumatic, normocephalic. Pulm: CTAB A&P. -wheezes, -rales, -rhonchi. Symmetrical chest rise. No increase work of breathing. No respiratory distress. Cardiac: RRR, -mrg. Radial pulses intact and symmetrical. Abdominal: Nontender, nondistended, soft. BS present. MENTAL STATUS: Alert, gazes spontaneously around the room. Unable to assess orientation. LANG/SPEECH: Complete expressive aphasia. Follows one-step commands appropriately, does not follow two-step or complex commands. CRANIAL NERVES: II: Pupils equal and reactive, no RAPD. III, IV, : EOM grossly intact, no gaze preference or deviation, no nystagmus. V: Unable to assess VII: Right facial weakness with facial droop present VIII: Speech grossly intact IX: Palate elevates symmetrically Patient does not protrude tongue on command RUE: Flaccid, does not withdraw to pain LUE: 5/5 senior clerk strength, 5/5 elbow flexion, 5/5 elbow extension on command RLE: 4 -/5 hip flexion, 4 -/5 ankle dorsiflexion, 4 -/5 ankle plantar flexion. Greatly improved from initial assessment which was flaccid by nursing staff. Withdraws to sharp touch. LLE: 5/5 hip flexion, 5/5 ankle dorsiflexion/plantar flexion. Withdraws to sharp touch. Coordination: Unable to assess for dysmetria, [id number], dysdiadochokinesia due to patient inability to follow commands. No tremors appreciated at rest. Results & Data Results & Data ([facility]) Vital Signs (Past 12 Hours) Vital Signs Temp Pulse Pulse Resp BP BP Pulse Ox 05/21/20 16:44 83 19 160/90 H 99 05/21/20 16:29 74 18 143/74 H 96 05/21/20 16:14 83 20 152/83 H 99 05/21/20 16:12 67 18 135/78 99 05/21/20 15:59 71 16 149/85 H 99 05/21/20 15:34 36.3 C L 76 18 150/89 H 99 Supervising Physician Co-Signing Physician Notes Resident Physician Supervision Note: I independently interviewed and examined the patient and verified the rizo history and physical, reviewed labs and image studies, discussed the case with the resident Dr. Conde and agree with the findings and care plan. Resident Activity Tracking Resident Involvement: Resident Care Provided Care Provided: [facility]
--- NOTE | 2020-05-21 17:31 | Critical Care Consultation ---
Date of Consultation May 21, 2020 Assessment & Plan (1) Acute ischemic left MCA stroke: Reason Critically Ill: 60-year-old male with left MCA territory stroke with inability to transfer for thrombectomy due to increment weather, admitted to ICU post TPA administration. Neuro - CVApatient with right hemiplegia, right facial droop, global aphasia. Consistent with left MCA territory infarct with LVO. Unable to transfer for thrombectomy due to snowstorm and TPA administered at 1559. -Initial NIH score of 19 in the ED, now 18 on arrival to ICU following TPA -CTA head and neck"abrupt cut off of left ICA terminus, proximal to mid left MCA and proximal left A1 segment due to thromboembolism. Minimal distal reconstitution with left MCA distribution with extensive hypodensity within the left MCA territory including the basal ganglia. No significant stenosis, occlusions, or dissection identified within the carotid or vertebral arteries" -Neurology consulted, will follow up recommendations concerning aspirin Plavix -Follow-up lipid panel and A1c, follow-up echo -Frequent neuro exam -Monitor in ICU for 24 hours post TPA and follow-up CT head at 24-hour chun -PT, OT, speech -Case management consulted for long-term disposition Cardiac - History of proximal A. fibpatient underwent 5 ablations with last being in 2008 for recurrent proximal A. fib., Without known recurrent episodes -Patient is currently NSR on monitor, will continuously monitor on telemetry -Had previously been on Coumadin but has not been under anticoagulation in recent years, [id number] of 1 on 12/23 -Unsure if A. fib is etiology of thromboembolism at this time, will follow up echo to evaluate for clot. Patient may need long-term anticoagulation HLDpatient has been unable to tolerate statins due to myalgia, follow-up lipid panel HTNholding oral metoprolol as patient n.p.o., continuous hemodynamic monitoring in ICU for the time being -We will allow permissive hypertension with SBP <180 and would treat with IV labetalol/hydralazine if indicated Respiratory - No history of pulmonary disease, currently maintaining sats on room air, appears to be protecting airway -We will continue to monitor on continuous pulse ox, patient high risk for neurological decompensation which might require intubation GI - N.p.o., follow-up swallow eval RENAL/LYTES - Creatinine within normal limits, monitor electrolytes and replete as indicated - History of prostate cancer with prostatectomy in 2017 Monitor strict I's and O's ENDO - No history of diabetes or thyroid disease ICU hyperglycemic protocol HEME - H&H stable, ID - No indication for infectious process at this time LINES/IV ACCESS - Peripheral IVs DVT PROPHYLAXIS - SCDs, hold anticoagulation for first 24 hours following TPA administration CRITICAL CARE TIME - I have personally spent 40 minutes of critical care time in the direct management of this patient. This is a life/limb threatening event. This includes time spent evaluating patient, direct bedside care, chart review, placing orders, interpretation of diagnostic studies, discussion with consultants, patient, and family members, as well as other required patient management activities. This time is exclusive of all separately billable procedures, and teaching time and separate from and in addition to any other critical care service time. Thank you for allowing us to participate in the care of this patient. Please refer to my attending physician's documentation for any further recommendations. (2) Arthritis of knee, degenerative: (3) Hyperlipidemia: (4) Osteoarthritis: (5) Hypertension: (6) Paroxysmal atrial fibrillation: (7) Obstructive sleep apnea: (8) Lumbar foraminal stenosis: (9) History of prostate cancer: (10) SI (stress incontinence), male: (11) Multiple risk factors for coronary artery disease: Supervising Physician Co-Signing Physician Notes agree with AP as noted by critical care monica. See my note from 05/22 for details. History of Present Illness History of Present Illness Mr. Mendenhall is a 60-year-old male with PMH of atrial fibrillation s/p ablation x5 without known reoccurrence and not anticoagulated, HTN, JANESSA, CAD, HLD who presented to the emergency department earlier this afternoon via EMS with right sided weakness and right facial droop and aphasia. Patient was on the phone with a friend at 12:50 PM when he had sudden onset of symptoms. Patient's friend reportedly went to check on him immediately and found him on the ground in his home. CT imaging was consistent with large territory left MCA stroke. CTA confirmed an "abrupt cut off of the left ICA terminus, proximal to mid left MCA artery and proximal left A1 segment due to thromboembolism. Minimal distal reconstitution within the left MCA distribution with extensively hypodensity within the left MCA territory, including the basal ganglia, consistent with a large acute infarct." Unfortunately due to inclement weather patient is unable to be transferred for thrombectomy. Patient did receive TPA and is to be admitted to the ICU for post 24-hour monitoring following TPA administration protocol. Allergies Allergy/AdvReac Type Severity Reaction Status Date / Time Maditnk-Nyn-Ugs Reductase AdvReac Mild "Muscle Verified 01/29/20 07:25 Inhibitor aches" Home Medications Medication Instructions Recorded Confirmed Type metoprolol succinate 25 mg PO DAILY 08/21/19 05/21/20 History Patient History Medical History (Updated 05/21/20 @ 19:37 by Elias Abdul) Arthritis of knee, degenerative History of prostate cancer Hyperlipidemia Hypertension Lumbar foraminal stenosis Lyme disease Obstructive sleep apnea Osteoarthritis Paroxysmal atrial fibrillation no problems since 2008. SI (stress incontinence), male Surgical History History of cardiac radiofrequency ablation x5 [facility] last one 07/2008 History of carpal tunnel release of both wrists History of lumbar fusion (02/2018) L3-4 (FEB 2018) History of open reduction and internal fixation (ORIF) procedure Right femur History of prostatectomy (01/25/17) 01/2017- Grade 1 View - MAC #3, ETT #7.5 History of repair of rotator cuff Right History of total hip arthroplasty (2013) Right Hip then Revision done Hx of arthroscopy of right knee x3 Hx of fusion of cervical spine x2 Status post hardware removal Right Hip hardware removal Status post total right knee replacement (08/15/18) Family History Brother History of cancer Father Prostate cancer Denies family history of Ovarian cancer Myocardial infarction Breast cancer Colorectal cancer Social History Smoking Status: Unknown if ever smoked Second Hand Exposure: No; Hx Alcohol Use: Yes Alcohol type: beer Hx Substance Use: No Preferred Language: Thai Communication Ability: Effective Visual Impairment: No Limitations Hearing Ability: Normal Administrative Technician Required: No Beliefs That Will Affect Care: None and Samaritan Samaritan Beliefs: "NO ORIENTAL ORTHODOX" Current Living Situation: Alone current occupational status: disabled Feels Safe at Home: Yes Childhood Exposure to Second-Hand Smoke: No caffeine: No Dental Care, Regularly: No Physical Activity Frequency: 3-4 Times per Week Physical Activity Frequency Comment: walk every other day and back exercises Seatbelt Use: always Sunscreen Use: No Assistive Devices: Cane and Glasses Review of Systems Review of Systems: Other (Unable to obtain due to global aphasia following CVA) Physical Exam Constitutional: Patient alert, is cooperative following commands and appears comfortable. Not currently in acute distress. Eyes: PERRL, conjunctivae normal, anicteric sclerae no EOM movement deficit, no nystagmus and no papilledema ENMT: external ear and nose normal, oropharynx normal Neck: trachea midline, no thyromegaly Respiratory: normal respiratory effort, lungs clear to auscultation no labored breathing and no cough Auscultation: no crackles and no wheezes Gastrointestinal (Abdomen): normal bowel sounds, soft, nontender, no hepatosplenomegaly Musculoskeletal: Left upper and left lower extremities with normal motor strength and dexterity. Right upper extremity unable to lift against gravity. Right lower extremity is markedly weaker than the left but is able to lift against gravity. Skin: no rashes, warm and dry Neurologic: PERRLA, right facial droop, right-sided hemiplegia, global aphasia. Patient able to follow commands. Unable to assess orientation. Psychiatric: Unable to assess Results & Data Results & Data ([facility]) Vital Signs (Past 12 Hours) Vital Signs Temp Pulse Pulse Resp BP BP Pulse Ox 05/21/20 17:14 69 18 146/83 H 95 05/21/20 16:59 68 16 140/75 97 05/21/20 16:44 83 19 160/90 H 99 05/21/20 16:29 74 18 143/74 H 96 05/21/20 16:14 83 20 152/83 H 99 05/21/20 16:12 67 18 135/78 99 05/21/20 15:59 71 16 149/85 H 99 05/21/20 15:34 36.3 C L 76 18 150/89 H 99 Coding Level of Care Code Critical Care ea addt'l 30 min Diagnoses Acute ischemic left MCA stroke I63.512 Arthritis of knee, degenerative M17.10 Hyperlipidemia E78.5 Osteoarthritis M19.90 Hypertension I10 Paroxysmal atrial fibrillation I48.0 Obstructive sleep apnea G47.33 Lumbar foraminal stenosis M99.83 History of prostate cancer Z85.46 SI (stress incontinence), male N39.3 Multiple risk factors for coronary artery disease Z91.89
[2020-05-21] MEDS ORDERED: LABETALOL HCL IV 5 MG/ML 20ML IV PRN (18:44)
[2020-05-21] MEDS ORDERED: PHARMACIST DISCHARGE MED REC CONSULT PRN (18:44)
[2020-05-21] MEDS ORDERED: ICU PROTOCOL FOR HYPERGLYCEMIA PRN (18:44)
--- NOTE | 2020-05-21 19:02 | Emergency Department Note ---
History of Present Illness General Chief complaint: Stroke Alert Stated complaint: Right Facial Droop, Flaccid R side Source: EMS Limitations: physical limitation and clinical acuity History of Present Illness Provider complaint: Right-sided weakness and facial droop Onset (ago): hour(s) 2 (Last known normal 12:50 PM) Location: head, upper extremity, lower extremity and right Radiation: non-radiation Severity: severe Maximum Pain Intensity: 0 60-year-old male presents emergency department via EMS for right-sided facial droop and right-sided weakness. Report from EMS is that the patient was on the phone with a friend at 12:50 PM the patient was no longer able to speak. EMS was alerted to arrived to the patient's house in [place] and there he was found to have right-sided weakness and right-sided facial droop. Home Medications Medication Instructions Recorded Confirmed Type metoprolol succinate 25 mg PO DAILY 08/21/19 05/21/20 History Allergies Allergy/AdvReac Type Severity Reaction Status Date / Time Dvhwavs-Amj-Ksv Reductase AdvReac Mild "Muscle Verified 01/29/20 07:25 Inhibitor aches" Past Med/Surg History Medical History (Updated 05/21/20 @ 19:37 by Elias Abdul) Arthritis of knee, degenerative History of prostate cancer Hyperlipidemia Hypertension Lumbar foraminal stenosis Lyme disease Obstructive sleep apnea Osteoarthritis Paroxysmal atrial fibrillation no problems since 2008. SI (stress incontinence), male Surgical History History of cardiac radiofrequency ablation x5 [facility] last one 07/2008 History of carpal tunnel release of both wrists History of lumbar fusion (02/2018) L3-4 (FEB 2018) History of open reduction and internal fixation (ORIF) procedure Right femur History of prostatectomy (01/25/17) 01/2017- Grade 1 View - MAC #3, ETT #7.5 History of repair of rotator cuff Right History of total hip arthroplasty (2013) Right Hip then Revision done Hx of arthroscopy of right knee x3 Hx of fusion of cervical spine x2 Status post hardware removal Right Hip hardware removal Status post total right knee replacement (08/15/18) Family History Brother History of cancer Father Prostate cancer Denies family history of Ovarian cancer Myocardial infarction Breast cancer Colorectal cancer Social History Smoking Status: Unknown if ever smoked Second Hand Exposure: No; Hx Alcohol Use: Yes Alcohol type: beer Hx Substance Use: No Preferred Language: Croatian Communication Ability: Effective Visual Impairment: No Limitations Hearing Ability: Normal Service Crew Supervisor Required: No Beliefs That Will Affect Care: None and [employer] Day Beliefs: "NO ANABAPTIST" Current Living Situation: Alone current occupational status: disabled Feels Safe at Home: Yes Childhood Exposure to Second-Hand Smoke: No caffeine: No Dental Care, Regularly: No Physical Activity Frequency: 3-4 Times per Week Physical Activity Frequency Comment: walk every other day and back exercises Seatbelt Use: always Sunscreen Use: No Assistive Devices: Cane and Glasses Review of Systems Unobtainable due to cognitive status Physical Exam Vital Signs Vital Signs - 24 hr 05/21/20 15:34 05/21/20 15:59 05/21/20 16:12 Temperature 36.3 C L Temperature Source Temporal Artery Scan Pulse Rate 76 Pulse Rate [Finger] 71 67 Respiratory Rate 18 16 18 Respiratory Effort / Characteristics Non-Labored Non-Labored Respiratory Depth Normal Normal Blood Pressure 150/89 H Blood Pressure [Left Arm] 149/85 H 135/78 Blood Pressure Mean 109 Blood Pressure Mean [Left Arm] 106 97 Pulse Oximetry 99 99 99 Oxygen Delivery Method Room Air Room Air Room Air Sepsis Recent Fever Within 48 Hours No Sepsis New/Unexplained Change in Mental Status No Sepsis Action Taken by Nursing No Action Required 05/21/20 16:14 05/21/20 16:29 05/21/20 16:44 Temperature Temperature Source Pulse Rate Pulse Rate [Finger] 83 74 83 Respiratory Rate 20 18 19 Respiratory Effort / Characteristics Non-Labored Non-Labored Respiratory Depth Normal Normal Blood Pressure Blood Pressure [Left Arm] 152/83 H 143/74 H 160/90 H Blood Pressure Mean Blood Pressure Mean [Left Arm] 106 97 113 Pulse Oximetry 99 96 99 Oxygen Delivery Method Room Air Room Air Room Air Sepsis Recent Fever Within 48 Hours Sepsis New/Unexplained Change in Mental Status Sepsis Action Taken by Nursing 05/21/20 16:59 05/21/20 17:14 Temperature Temperature Source Pulse Rate Pulse Rate [Finger] 68 69 Respiratory Rate 16 18 Respiratory Effort / Characteristics Respiratory Depth Normal Blood Pressure Blood Pressure [Left Arm] 140/75 146/83 H Blood Pressure Mean Blood Pressure Mean [Left Arm] 96 104 Pulse Oximetry 97 95 Oxygen Delivery Method Room Air Sepsis Recent Fever Within 48 Hours Sepsis New/Unexplained Change in Mental Status Sepsis Action Taken by Nursing Physical Exam EYES: Conjunctivae and EOM are normal. Pupils are equal, round, and reactive to light. Right eye exhibits no discharge. Left eye exhibits no discharge. No scleral icterus. NECK: Supple. CV: Normal rate, irregular rhythm, normal heart sounds and intact distal pulses. There is no peripheral edema. Palpable radial pulses bue. PULM/CHEST: Effort normal and breath sounds normal. No respiratory distress. No stridor. He has no wheezes. He has no rales. - Chest Wall: He exhibits no tenderness. ABD: The abdomen is soft. Bowel sounds are normal. He has no distension. No mass is present. There is no tenderness. There is no rebound, no guarding, no Lancaster's sign and no tenderness at McBurney's point. Rovsig negative. MUSC/SKEL: Right-sided weakness. NEURO:NIHSS: 18 (1B:2, 2:1, 3:1, 4:2, 5b:3, 6b:3, 7:2, 9:2, 10:2) SKIN: Skin is warm and dry. He is not diaphoretic. Course Course 1440: Received a call from EMS. EMS for right-sided facial droop and right-sided weakness. Report from EMS is that the patient was on the phone with a friend at 12:50 PM the patient was no longer able to speak. EMS was alerted to arrived to the patient's house in [place] and there he was found to have right-sided weakness and right-sided facial droop. EMS stated that they were approximately 1 hour away due to the inclement weather. 1534: The patient arrived in the emergency department taken straight to CT scanner. Patient was then taken to room A1. Administered Medications Discontinued Medications Ioversol (Optiray 320 125ml) 119 ml IV ONCE ONE Stop: 05/21/20 15:36 Last Admin: 05/21/20 15:35 Dose: 119 ml Documented by: [id number] Critical Care Time Critical Care Time: Yes Total Critical Care Time: 61 I have personally spent greater than 61 minutes of critical care time in the direct management of this patient. This includes bedside care, interpretation of diagnostic studies, and testing, discussion with consultants, patient, and family members, and other required patient management activities. This 61 minutes is in excess of all separately billable procedures. Medical Decision Making Laboratory Data Result diagrams: 05/21/20 15:15 05/21/20 15:15 Lab Results 05/21/20 05/21/20 05/21/20 Range/Units 15:15 15:15 15:15 WBC 6.85 (4.8-10.8) K/uL RBC 4.62 L (4.7-6.1) M/uL Hgb 15.2 (14.0-18.0) g/dL Hct 44.7 (42-52) % MCV 96.8 (80-100) fL MCH 32.9 (25-34) pg MCHC 34.0 (32-36) g/dL RDW Std Deviation 44.7 (36.4-46.3) fL RDW Coeff of Rebecca 12.8 (11.5-14.5) % Plt Count 144 (130-400) K/uL MPV 12.4 H (7.4-10.4) fL Immature Gran % (Auto) 0.3 % Neut % (Auto) 65.6 % Lymph % (Auto) 24.4 % Hayes % (Auto) 7.9 % Eos % (Auto) 1.5 % Baso % (Auto) 0.3 % Neut # (Auto) 4.50 (1.4-6.5) K/uL Lymph # (Auto) 1.67 (1.2-3.4) K/uL Hayes # (Auto) 0.54 (0.11-0.59) K/uL Eos # (Auto) 0.10 (0-0.5) K/uL Baso # (Auto) 0.02 (0-0.2) K/uL Immature Gran # (Auto) 0.02 (0.00-0.02) K/uL PT Cancelled INR Cancelled APTT Cancelled PTT Ratio Cancelled VBG pH (7.36-7.41) VBG pCO2 (38-50) mmHg VBG pO2 mmHg VBG HCO3 mmol/L VBG O2 Saturation % VBG Base Excess mEq/L Barometric Pressure mm/Hg Sodium 139 (136-145) mmol/L Potassium 4.0 (3.5-5.1) mmol/L Chloride 103 (98-107) mmol/L Carbon Dioxide 31 (21-32) mmol/L Anion Gap 5.0 (3-11) BUN 22 H (7-18) mg/dl Creatinine 1.00 (0.6-1.4) mg/dl Est Cr Clr Drug Dosing Not Reportable Est GFR ( Amer) 93.7 Est GFR (Non-Af Amer) 80.9 BUN/Creatinine Ratio 21.6 H (10-20) Glucose 85 (70-99) mg/dl POC Glucose (70-99) mg/dl Calcium 9.1 (8.5-10.1) mg/dl Magnesium 2.1 (1.8-2.4) mg/dl Total Bilirubin 0.7 (0.2-1) mg/dl AST 27 (15-37) U/L ALT 33 (12-78) U/L Alkaline Phosphatase 67 (45-117) U/L Troponin I < 0.015 (0-0.045) ng/ml Total Protein 8.3 H (6.4-8.2) gm/dl Albumin 3.9 (3.4-5.0) gm/dl Globulin 4.4 H (2.5-4.0) gm/dl Albumin/Globulin Ratio 0.9 (0.9-2) Triglycerides (0-150) mg/dl Cholesterol (0-200) mg/dl LDL Cholesterol, Calc mg/dl VLDL Cholesterol, Calc mg/dl HDL Cholesterol mg/dl Cholesterol/HDL Ratio Ethyl Alcohol mg/dL (0-3) mg/dl SARS-CoV-2 Ag (Rapid) (Negative) Blood Type Antibody Screen 05/21/20 05/21/20 05/21/20 Range/Units 15:15 15:15 15:48 WBC (4.8-10.8) K/uL RBC (4.7-6.1) M/uL Hgb (14.0-18.0) g/dL Hct (42-52) % MCV (80-100) fL MCH (25-34) pg MCHC (32-36) g/dL RDW Std Deviation (36.4-46.3) fL RDW Coeff of Rebecca (11.5-14.5) % Plt Count (130-400) K/uL MPV (7.4-10.4) fL Immature Gran % (Auto) % Neut % (Auto) % Lymph % (Auto) % Hayes % (Auto) % Eos % (Auto) % Baso % (Auto) % Neut # (Auto) (1.4-6.5) K/uL Lymph # (Auto) (1.2-3.4) K/uL Hayes # (Auto) (0.11-0.59) K/uL Eos # (Auto) (0-0.5) K/uL Baso # (Auto) (0-0.2) K/uL Immature Gran # (Auto) (0.00-0.02) K/uL PT Cancelled INR Cancelled APTT Cancelled PTT Ratio Cancelled VBG pH (7.36-7.41) VBG pCO2 (38-50) mmHg VBG pO2 mmHg VBG HCO3 mmol/L VBG O2 Saturation % VBG Base Excess mEq/L Barometric Pressure mm/Hg Sodium (136-145) mmol/L Potassium (3.5-5.1) mmol/L Chloride (98-107) mmol/L Carbon Dioxide (21-32) mmol/L Anion Gap (3-11) BUN (7-18) mg/dl Creatinine (0.6-1.4) mg/dl Est Cr Clr Drug Dosing Est GFR ( Amer) Est GFR (Non-Af Amer) BUN/Creatinine Ratio (10-20) Glucose (70-99) mg/dl POC Glucose 99 (70-99) mg/dl Calcium (8.5-10.1) mg/dl Magnesium (1.8-2.4) mg/dl Total Bilirubin (0.2-1) mg/dl AST (15-37) U/L ALT (12-78) U/L Alkaline Phosphatase (45-117) U/L Troponin I (0-0.045) ng/ml Total Protein (6.4-8.2) gm/dl Albumin (3.4-5.0) gm/dl Globulin (2.5-4.0) gm/dl Albumin/Globulin Ratio (0.9-2) Triglycerides 135 (0-150) mg/dl Cholesterol 224 H (0-200) mg/dl LDL Cholesterol, Calc 137 mg/dl VLDL Cholesterol, Calc 27 mg/dl HDL Cholesterol 60 mg/dl Cholesterol/HDL Ratio 4 Ethyl Alcohol mg/dL (0-3) mg/dl SARS-CoV-2 Ag (Rapid) (Negative) Blood Type Antibody Screen 05/21/20 05/21/20 05/21/20 Range/Units 15:53 15:53 15:53 WBC (4.8-10.8) K/uL RBC (4.7-6.1) M/uL Hgb (14.0-18.0) g/dL Hct (42-52) % MCV (80-100) fL MCH (25-34) pg MCHC (32-36) g/dL RDW Std Deviation (36.4-46.3) fL RDW Coeff of Rebecca (11.5-14.5) % Plt Count (130-400) K/uL MPV (7.4-10.4) fL Immature Gran % (Auto) % Neut % (Auto) % Lymph % (Auto) % Hayes % (Auto) % Eos % (Auto) % Baso % (Auto) % Neut # (Auto) (1.4-6.5) K/uL Lymph # (Auto) (1.2-3.4) K/uL Hayes # (Auto) (0.11-0.59) K/uL Eos # (Auto) (0-0.5) K/uL Baso # (Auto) (0-0.2) K/uL Immature Gran # (Auto) (0.00-0.02) K/uL PT INR APTT PTT Ratio VBG pH 7.35 L (7.36-7.41) VBG pCO2 51 H (38-50) mmHg VBG pO2 32 mmHg VBG HCO3 27 mmol/L VBG O2 Saturation < 60.0 % VBG Base Excess 0.7 mEq/L Barometric Pressure 735.6 mm/Hg Sodium (136-145) mmol/L Potassium (3.5-5.1) mmol/L Chloride (98-107) mmol/L Carbon Dioxide (21-32) mmol/L Anion Gap (3-11) BUN (7-18) mg/dl Creatinine (0.6-1.4) mg/dl Est Cr Clr Drug Dosing Est GFR ( Amer) Est GFR (Non-Af Amer) BUN/Creatinine Ratio (10-20) Glucose (70-99) mg/dl POC Glucose (70-99) mg/dl Calcium (8.5-10.1) mg/dl Magnesium (1.8-2.4) mg/dl Total Bilirubin (0.2-1) mg/dl AST (15-37) U/L ALT (12-78) U/L Alkaline Phosphatase (45-117) U/L Troponin I (0-0.045) ng/ml Total Protein (6.4-8.2) gm/dl Albumin (3.4-5.0) gm/dl Globulin (2.5-4.0) gm/dl Albumin/Globulin Ratio (0.9-2) Triglycerides (0-150) mg/dl Cholesterol (0-200) mg/dl LDL Cholesterol, Calc mg/dl VLDL Cholesterol, Calc mg/dl HDL Cholesterol mg/dl Cholesterol/HDL Ratio Ethyl Alcohol mg/dL < 3.0 (0-3) mg/dl SARS-CoV-2 Ag (Rapid) (Negative) Blood Type A Positive Antibody Screen NEGATIVE 05/21/20 Range/Units 17:03 WBC (4.8-10.8) K/uL RBC (4.7-6.1) M/uL Hgb (14.0-18.0) g/dL Hct (42-52) % MCV (80-100) fL MCH (25-34) pg MCHC (32-36) g/dL RDW Std Deviation (36.4-46.3) fL RDW Coeff of Rebecca (11.5-14.5) % Plt Count (130-400) K/uL MPV (7.4-10.4) fL Immature Gran % (Auto) % Neut % (Auto) % Lymph % (Auto) % Hayes % (Auto) % Eos % (Auto) % Baso % (Auto) % Neut # (Auto) (1.4-6.5) K/uL Lymph # (Auto) (1.2-3.4) K/uL Hayes # (Auto) (0.11-0.59) K/uL Eos # (Auto) (0-0.5) K/uL Baso # (Auto) (0-0.2) K/uL Immature Gran # (Auto) (0.00-0.02) K/uL PT INR APTT PTT Ratio VBG pH (7.36-7.41) VBG pCO2 (38-50) mmHg VBG pO2 mmHg VBG HCO3 mmol/L VBG O2 Saturation % VBG Base Excess mEq/L Barometric Pressure mm/Hg Sodium (136-145) mmol/L Potassium (3.5-5.1) mmol/L Chloride (98-107) mmol/L Carbon Dioxide (21-32) mmol/L Anion Gap (3-11) BUN (7-18) mg/dl Creatinine (0.6-1.4) mg/dl Est Cr Clr Drug Dosing Est GFR ( Amer) Est GFR (Non-Af Amer) BUN/Creatinine Ratio (10-20) Glucose (70-99) mg/dl POC Glucose (70-99) mg/dl Calcium (8.5-10.1) mg/dl Magnesium (1.8-2.4) mg/dl Total Bilirubin (0.2-1) mg/dl AST (15-37) U/L ALT (12-78) U/L Alkaline Phosphatase (45-117) U/L Troponin I (0-0.045) ng/ml Total Protein (6.4-8.2) gm/dl Albumin (3.4-5.0) gm/dl Globulin (2.5-4.0) gm/dl Albumin/Globulin Ratio (0.9-2) Triglycerides (0-150) mg/dl Cholesterol (0-200) mg/dl LDL Cholesterol, Calc mg/dl VLDL Cholesterol, Calc mg/dl HDL Cholesterol mg/dl Cholesterol/HDL Ratio Ethyl Alcohol mg/dL (0-3) mg/dl SARS-CoV-2 Ag (Rapid) Negative (Negative) Blood Type Antibody Screen Imaging Data Radiologist's Impression: NECK CTA HISTORY: Stroke Like Symptoms TECHNIQUE: Multiaxial CT images of the neck were performed following the intravenous administration of contrast to evaluate the major cervical vessels. Maximum intensity projection images were also obtained. All measurements were calculated based on NASCET criteria. A dose lowering technique was utilized adhering to the principles of ALARA. COMPARISON STUDY: None. FINDINGS: The aortic arch and proximal great vessels are widely patent. There is no significant stenosis, occlusion, or dissection identified within the bilateral common carotid, internal carotid, or vertebral arteries. Posterior fusion from C6 through T3. Anterior cervical discectomy and fusion from C6 through T1. Surgical clips within the right neck base. Minimal calcified plaque within the left carotid bulb. IMPRESSION: No significant stenosis, occlusion, or dissection identified within the carotid or vertebral arteries. ACT 112: Negative or not required by law. Electronically signed by: Alejandro Cabral M.D. 05/21/2020 3:56 PM Dictated: 05/21/20 1552Transcribed: 05/21/20 1552 CTA ANGIOGRAPHY OF THE HEAD CLINICAL HISTORY: Stroke Like Symptoms COMPARISON STUDY: No previous studies for comparison. TECHNIQUE: Helical axial images of the head were obtained following uneventful intravenous administration of 119 cc of Optiray 320. Sagittal and coronal reconstructions were viewed as well as maximal intensity projections on an independent 3-D workstation. Automated exposure control was utilized for the study. A dose lowering technique was utilized adhering to the principles of ALARA. FINDINGS: Note is made of abrupt cut off of the distal portion of the left internal carotid artery with occlusion of the proximal aspect of the left A1 segment as well as occlusion of the proximal to mid aspect of the left middle cerebral artery. There is minimal distal reconstitution within the left MCA ter ritory. No additional foci of abrupt vessel cut off or identified. The posterior circulation is intact. There is no intracranial aneurysm. No acute intracranial hemorrhage, midline shift or mass effect is present. Note is made of extensive hypodensity within the left MCA territory consistent with an acute infarct which involves the left basal ganglia. IMPRESSION: Abrupt cut off of the left ICA terminus, proximal to mid left middle cerebral artery and proximal left A1 segment due to thromboembolism. Minimal distal reconstitution within the left MCA distribution with extensive hypodensity within the left MCA territory, including the basal ganglia, consistent with a large acute infarct. Findings discussed with Dr. Abdul at time of dictation. ACT 112: Negative or not required by law. Electronically signed by: Austin Prado M.D. 05/21/2020 3:57 PM Dictated: 05/21/20 1549Transcribed: 05/21/[address] OF THE HEAD WITHOUT CONTRAST CLINICAL HISTORY: Stroke-Like Symptoms COMPARISON STUDY: No previous studies for comparison. TECHNIQUE: Helical axial images of the head were obtained without IV contrast. Automated exposure control was utilized for the study. A dose lowering technique was utilized adhering to the principles of ALARA. FINDINGS: No acute intracranial hemorrhage, midline shift or mass effect is present. Note is made of a dense left middle cerebral artery. Asymmetric loss of caro-white differentiation is noted within portions of the left MCA territory, including the left basal ganglia. Ventricular system is unremarkable. Basal cisterns are patent. There are no extra-axial collections. IMPRESSION: Findings consistent with a dense left MCA sign which represents thromboembolic material within the left middle cerebral artery with acute infarct within the left middle cerebral artery territory. No acute intracranial hemorrhage. No mass effect. Findings discussed with Dr. Abdul at time of dictation. ACT 112: Negative or not required by law. Electronically signed by: Austin Prado M.D. 05/21/2020 3:48 PM Dictated: 05/21/20 1543Transcribed: 05/21/20 1543 XR chest 1V portable HISTORY: Stroke Like Symptoms COMPARISON: Chest 07/21/2018. FINDINGS: The heart is mildly enlarged. There is mild central pulmonary vascular congestion without overt edema. No new focal lung consolidations to suggest pneumonia. No pleural effusions. No pneumothorax. Cervical spinal fusion hardware. IMPRESSION: Cardiomegaly with mild central pulmonary vascular congestion without overt edema. ACT 112: Negative or not required by law. Electronically signed by: Alejandro Cabral M.D. 05/21/2020 4:23 PM Dictated: 05/21/20 1617Transcribed: 05/21/20 1617 [facility] Narrative Received a call from EMS. EMS for right-sided facial droop and right-sided weakness. Report from EMS is that the patient was on the phone with a friend at 12:50 PM the patient was no longer able to speak. EMS was alerted to arrived to the patient's house in [place] and there he was found to have right-sided weakness and right-sided facial droop. EMS stated that they were approximately 1 hour away due to the inclement weather. On arrival, the patient arrived in the emergency department taken straight to CT scanner. CT scan of the head was viewed by me and showed no ICH. Patient was then taken to room A1. Received a call from Dr. Prado who states there is a large left-sided MCA infarct most likely due to thrombotic occlusion. [facility] telestroke was consulted and I spoke with Dr. Ferguson. She reviewed the CT scans herself and agreed with my decision to administer TPA. TPA was administered via bolus by me and drip was started per protocol. CTA of the head showed Abrupt cut off of the left ICA terminus, proximal to mid left middle cerebral artery and proximal left A1 segment due to thromboembolism. Minimal distal reconstitution within the left MCA distribution with extensive hypodensity within the left MCA territory, including the basal ganglia, consistent with a large acute infarct. Dr. Ferguson did recommend that the patient be evaluated for thrombectomy. Unfortunately there is a large blizzard outside and [employer] is not flying. There is also no ground transportation available. We attempted to contact other EMS crew to see if they could take the patient to another closer facility for thrombectomy but none were available to do so. Given that there are no EMS crew is available for transport the patient will be admitted to our ICU. Dr. Jair Manzano hospitalist was made aware and Dr. Melissa Manzano ICU attending was also made aware. Dr. Ferguson did recommend repeat CT in 12 hours as she stated that the patient has a large stroke and there is potential for herniation. Impression & Plan Cerebrovascular accident Discharge Plan Visit Data Chief Complaint: Stroke Alert Stated Complaint: Right Facial Droop, Flaccid R side ED Provider: Elias Abdul Discharge Problem: Cerebrovascular accident Patient Disposition: Admitted As Inpatient Discharge Instructions Interventions: ED Discharge Assessment Last Done: 05/21/20 18:18 Discharge Problem: Cerebrovascular accident Qualifiers: CVA mechanism: unspecified Qualified Code(s): I63.9 - Cerebral infarction, unspecified
[2020-05-21 19:18] LABS: Chol HDL Ratio 4; Cholesterol 224 mg/dl (0-200); HDL Cholesterol 60 mg/dl; LDL Cholesterol Calculated 137 mg/dl; Triglycerides 135 mg/dl (0-150); VLDL Cholesterol 27 mg/dl
[2020-05-21] MEDS: SODIUM CHLORIDE 0.9% 1000ML 1,000 ML IV SCH (21:23)
[2020-05-21] MEDS ORDERED: METOPROLOL TARTRATE 1 MG/ML VIAL IV STA (23:19)
[2020-05-22] MEDS: SODIUM CHLORIDE 0.9% 1000ML 1,000 ML IV SCH (02:26)
[2020-05-22] MEDS ORDERED: METOPROLOL TARTRATE 1 MG/ML VIAL IV STA ×2 (03:09→03:47)
[2020-05-22] MEDS ORDERED: STAT IV Infusion **Titration per Protocol STA ×2 (04:43→05:05)
[2020-05-22] MEDS ORDERED: dilTIAZem HCL 125 MG in DEXTROSE 5% 100 ML IV SCH (04:45)
[2020-05-22] MEDS ORDERED: PHENYLEPHRINE HCL 20 MG in DEXTROSE 5% 500 ML IV SCH (05:15)
[2020-05-22 05:45] LABS: Albumin Globulin Ratio 0.8 (0.9-2); Albumin Level 3.1 gm/dl (3.4-5.0); BUN Creatinine Ratio 17.1 (10-20); Calcium 8.5 mg/dl (8.5-10.1); Creatinine Clr Calc Pharmacy 106.9 ml/min; Est GFR (African American) 110.6; Est GFR (Non-African American) 95.4; Potassium 3.7 mmol/L (3.5-5.1); Total Protein 7.1 gm/dl (6.4-8.2)
[2020-05-22 05:52] LABS: Hematocrit (blood only) 44.9 % (42-52); Hemoglobin 15.3 g/dL (14.0-18.0); Mean Corpuscular Hemoglobin 32.9 pg (25-34); Mean Corpuscular Hgb Conc 34.1 g/dL (32-36); Mean Corpuscular Volume 96.6 fL (80-100); Mean Platelet Volume 12.1 fL (7.4-10.4); Platelet Count 125 K/uL (130-400); RDW Coefficient of Variation 12.9 % (11.5-14.5); RDW Standard Deviation 44.9 fL (36.4-46.3); Red Blood Count 4.65 M/uL (4.7-6.1)
[2020-05-22 05:59] LABS: Basophils # (auto) 0.02 K/uL (0-0.2); Basophils % (auto) 0.3 %; Eosinophils # (auto) 0.04 K/uL (0-0.5); Eosinophils % (auto) 0.6 %; Immature Granulocytes # (auto) 0.01 K/uL (0.00-0.02); Immature Granulocytes % (auto) 0.2 %; Lymphocytes # (auto) 1.42 K/uL (1.2-3.4); Lymphocytes % (auto) 21.8 %; Monocytes # (auto) 0.56 K/uL (0.11-0.59); Monocytes % (auto) 8.6 %; Neutrophils # (auto) 4.45 K/uL (1.4-6.5); Neutrophils % (auto) 68.5 %; RBC Morphology Unremarkable
[2020-05-22] MEDS ORDERED: METOPROLOL TARTRATE 1 MG/ML VIAL IV SCH (06:00)
[2020-05-22] MEDS: POTASSIUM CHLORIDE / WTR 10 MEQ/100 ML PLCT IV SCH ×2 (06:09→07:06)
--- NOTE | 2020-05-22 06:58 | Electrocardiogram Report ---
Test Reason : Blood Pressure : / mmHG Vent. Rate : 071 BPM Atrial Rate : 071 BPM P-R Int : 164 ms QRS Dur : 090 ms QT Int : 424 ms P-R-T Axes : 070 -18 055 degrees QTc Int : 461 ms Poor data quality, interpretation may be adversely affected Normal sinus rhythm When compared with ECG of 21-JUL-2018 11:25, No significant change was found Confirmed by Johan Lundy ([id number]) on 05/22/2020 6:58:06 AM Referred By: ED Confirmed By:Johan Lundy
[2020-05-22 07:18] LABS: Estimated Average Glucose 103 mg/dl; Hemoglobin A1C 5.2 % (4.5-5.6)
--- NOTE | 2020-05-22 07:42 | CT Scan Report ---
CT OF THE HEAD WITHOUT CONTRAST CLINICAL HISTORY: post tpa/ CVA COMPARISON STUDY: Head CT and CTA of the head May 21, 2020. CT DOSE: 1228.53 mGy.cm TECHNIQUE: Helical axial images of the head were obtained without IV contrast. Automated exposure con trol was utilized for the study. A dose lowering technique was utilized adhering to the principles o f ALARA. FINDINGS: Note is again made of hyperdensity within the left middle cerebral artery. There is also hy perdensity within several left-sided sylvian branches. Hypodensity within the left frontoparietal reg ion is noted. This is more conspicuous than on prior exam consistent with evolving acute infarct. Thi s involves a significant portion of the left basal ganglia. There is mild mass effect with slight rig htward midline shift. No hemorrhage is present. Basal cisterns are patent. There is no evidence for h erniation at this time. No calvarial fracture is present. A few calcifications project over the poste rior superior aspect of the left globe. IMPRESSION: Increased conspicuity of hypodensity with loss of caro-white differentiation within the left frontote mporal region consistent with an acute left MCA territory infarct including significant involvement o f the left basal ganglia. Mild mass effect with slight rightward midline shift. No acute intracranial hemorrhage. Hyperdensity within the left middle cerebral artery and sylvian branches as shown on shavonne or exam suggests thromboembolic material. ACT 112: Negative or not required by law. Electronically signed by: Austin Prado M.D. 05/22/2020 7:40 AM
[2020-05-22] MEDS ORDERED: SODIUM CHLORIDE 3 % 500 ML IV SCH (08:45)
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
[2020-05-22 09:41] LABS: pH VBG 7.4 (7.36-7.41)
[2020-05-22] MEDS ORDERED: FAMOTIDINE 20 MG in SYRINGE 3 ML IV SCH (10:30)
[2020-05-22] MEDS ORDERED: PANTOprazole 40 MG in SYRINGE 0 ML IV SCH (11:00)
--- NOTE | 2020-05-22 12:57 | Neurology Consultation ---
Date of Consultation May 22, 2020 History of Present Illness Attending Physician: Re Adam MD History of Present Illness Patient transferred to tertiary center before I was able to see him in neurological consultation. Allergies Allergy/AdvReac Type Severity Reaction Status Date / Time Roettcb-Tpl-Ing Reductase AdvReac Mild "Muscle Verified 01/29/20 07:25 Inhibitor aches" Home Medications Medication Instructions Recorded Confirmed Type metoprolol succinate 25 mg PO DAILY 08/21/19 05/21/20 History Patient History Medical History (Updated 05/21/20 @ 19:37 by Elias Abdul) Arthritis of knee, degenerative History of prostate cancer Hyperlipidemia Hypertension Lumbar foraminal stenosis Lyme disease Obstructive sleep apnea Osteoarthritis Paroxysmal atrial fibrillation no problems since 2008. SI (stress incontinence), male Surgical History History of cardiac radiofrequency ablation x5 [facility] last one 07/2008 History of carpal tunnel release of both wrists History of lumbar fusion (02/2018) L3-4 (FEB 2018) History of open reduction and internal fixation (ORIF) procedure Right femur History of prostatectomy (01/25/17) 01/2017- Grade 1 View - MAC #3, ETT #7.5 History of repair of rotator cuff Right History of total hip arthroplasty (2013) Right Hip then Revision done Hx of arthroscopy of right knee x3 Hx of fusion of cervical spine x2 Status post hardware removal Right Hip hardware removal Status post total right knee replacement (08/15/18) Family History Brother History of cancer Father Prostate cancer Denies family history of Ovarian cancer Myocardial infarction Breast cancer Colorectal cancer Social History Smoking Status: Unknown if ever smoked Second Hand Exposure: No; Hx Alcohol Use: Yes Alcohol type: beer Hx Substance Use: No Preferred Language: Martiniquais Communication Ability: Impaired Visual Impairment: No Limitations Hearing Ability: Normal Paving Rammer Required: No Beliefs That Will Affect Care: None and Mormon Mormon Beliefs: "NO PENTECOSTAL" Current Living Situation: Alone current occupational status: disabled Feels Safe at Home: Yes Childhood Exposure to Second-Hand Smoke: No caffeine: No Dental Care, Regularly: No Physical Activity Frequency: 3-4 Times per Week Physical Activity Frequency Comment: walk every other day and back exercises Seatbelt Use: always Sunscreen Use: No Assistive Devices: None Results & Data ([facility]) Vital Signs (Past 12 Hours) Vital Signs Temp Pulse Pulse Pulse Resp BP BP 05/22/20 11:27 36.9 C 66 84 21 116/79 05/22/20 10:59 66 21 116/79 05/22/20 09:59 69 20 114/73 05/22/20 08:59 63 19 121/69 05/22/20 08:00 64 05/22/20 07:59 36.9 C 75 19 120/75 05/22/20 06:59 69 16 113/71 05/22/20 05:59 64 14 135/79 05/22/20 04:59 119 H 12 99/67 L 05/22/20 03:59 122 H 22 111/85 05/22/20 03:54 125 H 05/22/20 03:22 134 H 118/97 05/22/20 02:59 130 H 16 118/97 05/22/20 01:59 134 H 14 123/81 05/22/20 00:59 67 12 116/67 Pulse Ox 05/22/20 11:27 98 05/22/20 10:59 98 05/22/20 09:59 98 05/22/20 08:59 96 05/22/20 08:00 05/22/20 07:59 97 05/22/20 06:59 95 05/22/20 05:59 96 05/22/20 04:59 95 05/22/20 03:59 95 05/22/20 03:54 05/22/20 03:22 05/22/20 02:59 95 05/22/20 01:59 95 05/22/20 00:59 95 PG Care Time/CCT Total # of Minutes Spent Total Time Spent with Patient: Total time spent is greater than 50% in coordin ation of care (as documented) at patient's floor/unit and/or counseling patient: Coding Level of Care Code None
--- NOTE | 2020-05-22 15:10 | XCELERA ---
[id number]
--- NOTE | 2020-05-23 05:37 | Electrocardiogram Report ---
Test Reason : Blood Pressure : / mmHG Vent. Rate : 110 BPM Atrial Rate : 110 BPM P-R Int : 158 ms QRS Dur : 084 ms QT Int : 358 ms P-R-T Axes : 048 -10 064 degrees QTc Int : 484 ms Sinus tachycardia Otherwise normal ECG When compared with ECG of 21-MAY-2020 15:51, Vent. rate has increased BY 39 BPM Confirmed by Johan Lundy ([id number]) on 05/23/2020 5:37:00 AM Referred By: REFERRED SELF Confirmed By:Johan Lundy
--- NOTE | 2020-05-23 05:38 | Electrocardiogram Report ---
Test Reason : Blood Pressure : / mmHG Vent. Rate : 124 BPM Atrial Rate : 133 BPM P-R Int : 000 ms QRS Dur : 086 ms QT Int : 328 ms P-R-T Axes : 000 -09 076 degrees QTc Int : 471 ms Atrial flutter vs atrial fibrillation with rapid ventricular response Septal infarct , age undetermined Abnormal ECG When compared with ECG of 21-MAY-2020 22:02, Atrial fibrillation has replaced Sinus rhythm Confirmed by Johan Lundy ([id number]) on 05/23/2020 5:38:06 AM Referred By: REFERRED SELF Confirmed By:Johan Lundy
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
== END 2020-05-22 11:31 | disposition short-term general hospital (02) | DRG 61 ==
LOC: ED 15:32 → 1E 17:24

== ENCOUNTER 2024-12-24 19:20 | Inpatient (IN) ==
[2024-12-24] MEDS: ASPIRIN CHEW 324 MG PO STA (19:36)
[2024-12-24 19:49] LABS: Hematocrit (blood only) 42.9 % (42.0-52.0); Hemoglobin 14.9 g/dl (14.0-18.0); Mean Corpuscular Hemoglobin 31.8 pg (25.0-34.0); Mean Corpuscular Volume 91.7 fL (80.0-100.0); Platelet Count 167 K/uL (130-400); RDW Standard Deviation 43.1 fL (36.4-46.3); Red Blood Count 4.68 M/uL (4.70-6.10); White Blood Count 5.64 K/ul (4.8-10.8)
--- NOTE | 2024-12-24 20:01 | XRay Report ---
Single frontal view of the chest Comparison is made to prior exam dated May 21, 2020 Impression: No acute pulmonary pathology. Electronically signed by Cuco Garrett 12-24-2024 8:01 PM
[2024-12-24 20:07] LABS: Anion Gap 8.0 (3-11); Blood Urea Nitrogen 17.0 mg/dl (6-23); Calcium 9.2 mg/dl (8.6-10.3); Carbon Dioxide 26.0 mmol/L (21-32); Chloride 103.0 mmol/L (98-107); Creatinine Clr Calc Pharmacy 78.3 ml/min; Glucose 106.0 mg/dl (70-99(Fasting)); Lipase 33.0 U/L (11-82); Potassium 4.1 mmol/L (3.5-5.1); Sodium 137.0 mmol/L (136-145)
[2024-12-24 20:17] LABS: INR 1.1 (0.9-1.1); Partial Thromboplastin Time 26 Seconds (21-31); Prothrombin Time 11.6 Seconds (9.0-12.0)
[2024-12-24 20:27] LABS: ALC (manual) 3.67 K/uL (1.2-3.4); ANC (manual) 1.52 K/uL (1.4-6.5); Large Granular Lymph # (manua 1.13 K/uL; Large Granular Lymph % (manual) 20 %
--- NOTE | 2024-12-24 20:32 | Emergency Department Note ---
History of Present Illness General Chief Complaint: Cardiac Assessment Stated Complaint: SOB, HEART PROBLEMS Time Seen by Provider: 12/24/24 19:29 Limitations: language barrier History of Present Illness Provider Complaint: chest pain Onset (ago): day(s) 3 Duration: intermittent Onset: during rest Pain Location: substernal and left chest Pain Radiation: none Severity: moderate Current Pain Intensity: 3 Quality: + tightness and + heaviness Relieved By: + nothing Exacerbated By: + nothing Context: no recent illness, no recent surgery, no recent immobilization, no recent travel, no trauma/injury or no history of DVT/PE Associated symptoms: + dyspnea; no nausea, no vomiting, no syncope, no palpitations, no cough or no leg swelling Home Medications Medication Instructions Recorded Confirmed Type multivitamin with minerals-folic 1 tab PO DAILY 08/09/23 12/24/24 History acid 120 mcg chewable tablet (Centrum Adult 50 Plus Fresh-Fruity) mecobalamin (vitamin B12) 1,000 1,000 mcg PO DAILY #30 tabs 03/29/24 12/24/24 Rx mcg chewable tablet metoprolol succinate 100 mg 100 mg PO DAILY #90 tabs 12/17/24 12/24/24 Rx tablet,extended release 24 hr rivaroxaban 20 mg tablet (Xarelto) 20 mg PO DAILY #90 tabs 12/17/24 12/24/24 Rx vitamin E 268 mg (400 unit) capsule 268 mg PO DAILY 12/24/24 12/24/24 History Allergies Allergy/AdvReac Type Severity Reaction Status Date / Time No Known Allergies Allergy Verified 12/24/24 20:26 Past Med/Surg History Problem List (Updated 12/24/24 @ 20:32 by Elias Abdul MD) Chest pain (Acute) Atrial flutter Osteoarthritis Esophageal dysphagia H/O stroke without residual deficits Suprapubic discomfort GERD (gastroesophageal reflux disease) Expressive aphasia Anticoagulant long-term use History of CVA (cerebrovascular accident) (05/2020) 2019 Multiple risk factors for coronary artery disease Hypertension Paroxysmal atrial fibrillation Arthritis of knee, degenerative History of prostate cancer 2017/sx intervention Hyperlipidemia denies Medical History Gastritis Anticoagulant long-term use History of CVA (cerebrovascular accident) last stroke 03/2023- w/ impaired verbal communication and right sided facial paralysis and h/o in 2020 History of COVID-19 2020- no hosp; resolved Epigastric pain intermittent, reason for upcoming procedure Difficulty swallowing mild since stroke. History of colon polyps SI (stress incontinence), male Obstructive sleep apnea denies Lumbar foraminal stenosis ? in hx. Lyme disease hx Surgical History History of endoscopy Status post total right knee replacement (08/15/18) History of lumbar fusion (02/2018) L3-4 (FEB 2018) History of carpal tunnel release of both wrists Hx of arthroscopy of right knee x3 Hx of fusion of cervical spine x2 History of total hip arthroplasty (2013) Right Hip then Revision done Status post hardware removal Right Hip hardware removal History of open reduction and internal fixation (ORIF) procedure Right femur History of repair of rotator cuff Right History of prostatectomy (01/25/17) 01/2017- Grade 1 View - MAC #3, ETT #7.5 History of cardiac radiofrequency ablation x5 [facility] last one 07/2008 Family History Brother History of cancer Father Prostate cancer Denies family history of Ovarian cancer Myocardial infarction Breast cancer Colorectal cancer Social History Smoking Status: Former smoker Tobacco Type: Declines Age Started Using Tobacco: 20; Age Quit Using Tobacco: 28; packs per day: 0.25; Second Hand Exposure: No; Do You Dip or Chew Tobacco: No; Hx Alcohol Use: Yes (once per month) Alcohol type: beer and hard liquor Alcohol Intake Frequency: Monthly or Less Hx Substance Use: Yes (advised) Last Used Substance Other:: 06/10/24 Substance Use Type Other:: marijuana on occ/not every day (advised) Preferred Language: Cymro Communication Ability: Impaired Communication Ability Comment: impaired verbal communication Visual Impairment: No Limitations Hearing Ability: Normal Information Systems Security Officer Required: No Beliefs That Will Affect Care: None Current Living Situation: Alone current occupational status: disabled Feels Safe at Home: Yes Childhood Exposure to Second-Hand Smoke: No Diet: regular caffeine: No during the past year weight has: remained stable Dental Care, Regularly: No Physical Activity Frequency: Does not Exercise Seatbelt Use: always Sunscreen Use: No Assistive Devices: Glasses Physical Exam Vital Signs Vital Signs - 24 hr 12/24/24 19:24 12/24/24 19:34 12/24/24 19:38 Temperature 36.6 C Temperature Source Temporal Artery Scan Pulse Rate 123 H 106 H Pulse Rate [Right Finger] Pulse Rhythm Regular Pulse Strength Normal Respiratory Rate 17 Respiratory Effort / Characteristics Non-Labored Spontaneous Respiratory Depth Normal Respiratory Pattern Regular Blood Pressure 145/84 H Blood Pressure [Left Arm] Blood Pressure Mean 104 Blood Pressure Mean [Left Arm] Blood Pressure Position Sitting Pulse Oximetry 95 97 Oxygen Delivery Method Room Air Room Air Sepsis Recent Fever Within 48 Hours No Sepsis New/Unexplained Change in Mental Status N/A Sepsis Action Taken by Nursing No Action Required 12/24/24 19:38 12/24/24 19:38 Temperature 36.6 C Temperature Source Oral Pulse Rate 83 Pulse Rate [Right Finger] 82 Pulse Rhythm Pulse Strength Respiratory Rate 20 19 Respiratory Effort / Characteristics Non-Labored Spontaneous Respiratory Depth Normal Respiratory Pattern Regular Blood Pressure Blood Pressure [Left Arm] 129/81 Blood Pressure Mean Blood Pressure Mean [Left Arm] 97 Blood Pressure Position Pulse Oximetry 98 98 Oxygen Delivery Method Room Air Room Air Sepsis Recent Fever Within 48 Hours Sepsis New/Unexplained Change in Mental Status Sepsis Action Taken by Nursing Physical Exam HENT: Exam performed. - Head: Normocephalic and atraumatic. EYES: Conjunctivae and EOM are normal. Right eye exhibits no discharge. Left eye exhibits no discharge. No scleral icterus. NECK: Normal range of motion. Neck supple. No JVD present. CV: Normal rate, irregular rhythm, normal heart sounds and intact distal pulses. There is no peripheral edema. Palpable radial pulses bue. PULM/CHEST: Effort normal and breath sounds normal. No respiratory distress. No stridor. no wheezes. no rales. ABD: The abdomen is soft. There is no tenderness. NEURO: Motor and sensation grossly intact. Expressive aphasia which is at baseline for the patient. Course Course 1928: The patient was evaluated in room C11. A complete history and physical exam was performed Cardiac monitoring: An order was placed for continuous cardiac monitoring. The monitor shows a rate of 100 with atrial flutter rhythm interpreted by me 2030: Vital signs stable. Labs and imaging are unremarkable. Patient will be admitted for chest pain rule out ACS. Administered Medications Discontinued Medications Aspirin (Aspirin Chew 324 Mg) 324 mg PO NOW STA Stop: 12/24/24 19:31 Last Admin: 12/24/24 19:36 Dose: 324 mg Documented By: TIMUR Medical Decision Making Laboratory Data Attestation: I reviewed the patient's lab results. 12/24/24 19:36 12/24/24 19:36 Labs: Lab Results 12/24/24 Range/Units 19:36 WBC 5.64 (4.8-10.8) K/ul RBC 4.68 L (4.70-6.10) M/uL Hgb 14.9 (14.0-18.0) g/dl Hct 42.9 (42.0-52.0) % MCV 91.7 (80.0-100.0) fL MCH 31.8 (25.0-34.0) pg MCHC 34.7 (32.0-36.0) g/dL RDW Std Deviation 43.1 (36.4-46.3) fL RDW Coeff of Rebecca 12.8 (11.5-14.5) % Plt Count 167 (130-400) K/uL MPV 10.6 (9.4-12.4) fL Neutrophils % (Manual) 27 % Lymphocytes % (Manual) 45 % Monocytes % (Manual) 4 % Eosinophils % (Manual) 1 % Basophils % (Manual) 3 % Neutrophils # (Manual) 1.52 (1.40-6.50) K/uL Total Absolute Neuts 1.52 (1.4-6.5) K/uL Lymphocytes # (Manual) 2.54 (1.2-3.4) K/uL Total Abs Lymphocytes 3.67 H (1.2-3.4) K/uL Monocytes # (Manual) 0.23 (0.11-0.59) K/uL Eosinophils # (Manual) 0.06 (0-0.50) K/uL Basophils # (Manual) 0.17 (0-0.2) K/uL Large Granular Lymphs 20 % # Lrg Granular Lymphs 1.13 K/uL PT 11.6 (9.0-12.0) Seconds INR 1.1 (0.9-1.1) APTT 26 (21-31) Seconds PTT Ratio 1.0 Sodium 137 (136-145) mmol/L Potassium 4.1 (3.5-5.1) mmol/L Chloride 103 (98-107) mmol/L Carbon Dioxide 26 (21-32) mmol/L Anion Gap 8 (3-11) BUN 17 (6-23) mg/dl Creatinine 0.91 (0.6-1.4) mg/dl Est Cr Clr Drug Dosing 78.3 ml/min eGFR 93.53 BUN/Creatinine Ratio 18.7 (10-20) Glucose 106 H (70-99(Fasting)) mg/dl Calcium 9.2 (8.6-10.3) mg/dl Troponin I High Sens 15.3 (0-20) pg/ml Lipase 33 (11-82) U/L Imaging Data Chest x-ray: Attestation: I personally reviewed and interpreted this imaging study as follows: My impression: Chest x-ray negative. Airway clear. No pneumothorax. No consolidation. No cardiomegaly or cephalization.. No free air under the diaphragm. No fractures of the skeletal structures. Radiologist's impression: Chest X-Ray 12/24/24 19:30 Single frontal view of the chest Comparison is made to prior exam dated May 21, 2020 Impression: No acute pulmonary pathology. Electronically signed by Cuco Garrett 12-24-2024 8:01 PM ECG Data Attestation: I personally reviewed and interpreted this ECG as follows: Rate (beats per minute): 100 Rhythm: atrial flutter Findings: no ST depression, no ST elevation or no prolonged QT [facility] Narrative 1928: The patient was evaluated in room C11. A complete history and physical exam was performed Cardiac monitoring: An order was placed for continuous cardiac monitoring. The monitor shows a rate of 100 with atrial flutter rhythm interpreted by me 2030: Vital signs stable. Labs and imaging are unremarkable. Patient will be admitted for chest pain rule out ACS. Impression & Plan Chest pain Discharge Plan Visit Data Chief Complaint: Cardiac Assessment Stated Complaint: SOB, HEART PROBLEMS ED Provider: Elias Abdul Discharge Problem: Chest pain Patient Disposition: Being Evaluated by Hospitalist Condition: Fair Forms Stand Alone Forms: My [facility] Prescriptions Prescriptions: No Action multivit with min-folic acid [Centrum Adult 50 Fresh-Fruity] 120 mcg tablet,chewable 1 tab PO DAILY mecobalamin (vitamin B12) 1,000 mcg tablet,chewable 1,000 mcg PO DAILY Qty: 30 0RF metoprolol succinate 100 mg tablet extended release 24 hr 100 mg PO DAILY Qty: 90 3RF Xarelto 20 mg tablet 20 mg PO DAILY Qty: 90 3RF Rx Instructions: must administer with evening meal vitamin E 268 mg (400 unit) Capsule 268 mg PO DAILY Referrals Referrals: Terrie Elise DO [Primary Care Provider] -
--- NOTE | 2024-12-24 21:03 | History & Physical Report ---
Date of Service December 24, 2024 Assessment & Plan (1) Chest pain: Plan 64-year-old male PMHx CVA (2022) on Xarelto aphasia, paroxysmal A-fib, HTN, HLD, history of prostate cancer, dermatitis, GERD, and lumbar spinal stenosis presenting for midsternal chest pain x 3 days. ED evaluation reveals CBC without leukocytosis, stable H&H; PT/INR WNL; CMP grossly unremarkable with exception of glucose 106; troponin 15.3; CXR without acute pulmonary pathology; EKG a flutter with variable AV block, pulmonary disease pattern at 100 bpm.; Provided with aspirin 324 mg p.o. in the ED. #Chest pain 7 days chest pain, midsternal. Occasional radiation below L breast and radiating to back. None at present, but has been consistent. ROSS, new for patient. Does also demonstrate a "choking" motion after an eating motion. States he occasionally feels that food gets stuck in his throat. No longer on PPI, but with history of GERD. Suspect this may be esophageal in nature, low suspicion for ACS. - CBC without leukocytosis, H/H stable; Troponin 15.3, pending repeat x 1 - EKG Aflutter with pulm disease pattern at 100 bpm - CXR WNL - Echo 2022 EF 55%; pending repeat - Lipid panel 08/2024 -- Total 173, LDL 91, HDL 43, TG 193 -- intolerant to statins - Pantoprazole daily started - Speech therapy consulted -- appreciate assistance - Consider GI consult if (-) cardiac workup #History of CVA- 2019 and again in 2022, on Xarelto; with residual expressive aphasia #PAF- EKG read as Aflutter, 100 bpm at admission; Xarelto, metoprolol - continue #HTN- Metoprolol - continue #HLD- Intolerant to statins, diet controlled Dispo: Obs, med/tele VTE Prophylaxis: On Xarelto- continue This document was dictated utilizing [employer]. Please excuse any grammatical errors that may be secondary to use of this software. Admission and Anticipated Discharge Date Admission Date: 12/24/2024 History of Present Illness Chief Complaint: Chest pain Primary Care Provider: Terrie Elise DO 64-year-old male PMHx CVA (2022) on Xarelto with expressive aphasia, paroxysmal A-fib, HTN, HLD, history of prostate cancer, dermatitis, GERD, and lumbar spinal stenosis presenting for midsternal chest pain x 7 days. Again, patient has expressive aphasia so there is a barrier regarding obtaining detailed history regarding the event. He holds up "7" with his hands when asked how long he has been having chest pain. He traces on his chest that it is midsternal with occasional radiation to his L breast/back area. He shakes his head no when asked if the pain radiates to his arm, upper back, jaw, or neck. He shakes his head yes when asked if he has "heart fluttering" and writes the word "heat" on his notepad, agreeing that the heart fluttering happens in the heat. He has ROSS, displaying a running motion with his arms and confirms by shaking his head "yes" when asked if the SOB is with exercise. Shakes head no when asked if SOB at rest or when laying flat. Does demonstrate a choking motion and coughing motion after eating or if eating too fast. He has these symptoms with liquids as well. He demonstrates a runny nose as well. He denies abdominal pain, N/V/D/C, LUTS, numbness/tingling, F/C, or weakness. No recent falls. ED evaluation reveals CBC without leukocytosis, stable H&H; PT/INR WNL; CMP grossly unremarkable with exception of glucose 106; troponin 15.3; CXR without acute pulmonary pathology; EKG a flutter with variable AV block, pulmonary disease pattern at 100 bpm.; Provided with aspirin 324 mg p.o. in the ED. Please see Dr. Burdick's attestation for adjustments/additions to treatment plan. Allergies Allergy/AdvReac Type Severity Reaction Status Date / Time No Known Allergies Allergy Verified 12/24/24 20:26 Home Medications Medication Instructions Recorded Confirmed Type multivitamin with minerals-folic 1 tab PO DAILY 08/09/23 12/24/24 History acid 120 mcg chewable tablet (Centrum Adult 50 Plus Fresh-Fruity) mecobalamin (vitamin B12) 1,000 1,000 mcg PO DAILY #30 tabs 03/29/24 12/24/24 Rx mcg chewable tablet metoprolol succinate 100 mg 100 mg PO DAILY #90 tabs 12/17/24 12/24/24 Rx tablet,extended release 24 hr rivaroxaban 20 mg tablet (Xarelto) 20 mg PO DAILY #90 tabs 12/17/24 12/24/24 Rx vitamin E 268 mg (400 unit) capsule 268 mg PO DAILY 12/24/24 12/24/24 History Past Med/Surg History Problem List Chest pain (Acute) Atrial flutter Osteoarthritis Esophageal dysphagia H/O stroke without residual deficits Suprapubic discomfort GERD (gastroesophageal reflux disease) Expressive aphasia Anticoagulant long-term use History of CVA (cerebrovascular accident) (05/2020) 2019 Multiple risk factors for coronary artery disease Hypertension Paroxysmal atrial fibrillation Arthritis of knee, degenerative History of prostate cancer 2016/sx intervention Hyperlipidemia denies Medical History Gastritis Anticoagulant long-term use History of CVA (cerebrovascular accident) last stroke 03/2023- w/ impaired verbal communication and right sided facial paralysis and h/o in 2019 History of COVID-2019- no hosp; resolved Epigastric pain intermittent, reason for upcoming procedure Difficulty swallowing mild since stroke. History of colon polyps SI (stress incontinence), male Obstructive sleep apnea denies Lumbar foraminal stenosis ? in hx. Lyme disease hx Surgical History History of endoscopy Status post total right knee replacement (08/15/18) History of lumbar fusion (02/2018) L3-4 (FEB 2018) History of carpal tunnel release of both wrists Hx of arthroscopy of right knee x3 Hx of fusion of cervical spine x2 History of total hip arthroplasty (2013) Right Hip then Revision done Status post hardware removal Right Hip hardware removal History of open reduction and internal fixation (ORIF) procedure Right femur History of repair of rotator cuff Right History of prostatectomy (01/25/17) 01/2017- Grade 1 View - MAC #3, ETT #7.5 History of cardiac radiofrequency ablation x5 [facility] last one 07/2008 Family History Brother History of cancer Father Prostate cancer Denies family history of Ovarian cancer Myocardial infarction Breast cancer Colorectal cancer Social History Smoking Status: Never smoker Tobacco Type: Declines Age Started Using Tobacco: 20; Age Quit Using Tobacco: 28; packs per day: 0.25; Second Hand Exposure: No; Do You Dip or Chew Tobacco: No; Hx Alcohol Use: Yes Alcohol type: beer Alcohol Intake Frequency: Monthly or Less Hx Substance Use: Yes Last Used Substance: Days (ago) Last Used Substance Other:: 9 days Substance Use Type Other:: marijuana on occ/not every day (advised) Preferred Language: Egyptian Communication Ability: Impaired Communication Ability Comment: expressive aphasia Visual Impairment: No Limitations Hearing Ability: Normal Squad Sergeant Required: No Beliefs That Will Affect Care: None Current Living Situation: Alone current occupational status: disabled Feels Safe at Home: Yes Childhood Exposure to Second-Hand Smoke: No Diet: regular caffeine: No during the past year weight has: remained stable Dental Care, Regularly: No Physical Activity Frequency: Does not Exercise Seatbelt Use: always Sunscreen Use: No Assistive Devices: Glasses Review of Systems Review of Systems: All systems reviewed & are unremarkable except as noted in Subjective Physical Exam Physical Exam: General: No acute distress Skin: Warm and dry Head: Normocephalic, atraumatic Eyes: PERRL, conjunctivae clear, sclera non-icteric ENT: External ear and ear canal without swelling; nose atraumatic; good dentition, tongue normal appearance, pharynx normal Neck: Supple, no LAD Cardio: RRR, no M/G/R, S1 and S2 normal Resp: No respiratory distress, Lungs CTA in all lobes bilaterally, no wheezes, rales, or rhonchi Abdomen: Soft, symmetric, nontender; No masses or hepatosplenomegaly; Bowel sounds normoactive MSK: No deformities; pulses palpable and equal; no edema. Neuro: Expressive aphasia, utilizes notepad and pen to communicate; Awake, alert; Sensation intact bilaterally; CN grossly intact Psych: Appropriate mood and affect; good judgement and insight. Results & Data Results & Data Vital Signs (Past 12 Hours) Vital Signs Temp Pulse Pulse Resp BP BP Pulse Ox 12/24/24 19:38 83 19 98 12/24/24 19:38 36.6 C 82 20 129/81 98 12/24/24 19:38 97 12/24/24 19:34 106 H 12/24/24 19:24 36.6 C 123 H 17 145/84 H 95 O2 Del Method 12/24/24 19:38 Room Air 12/24/24 19:38 Room Air 12/24/24 19:38 Room Air 12/24/24 19:34 12/24/24 19:24 Room Air Laboratory Results 12/24/24 19:36 WBC 5.64 RBC 4.68 L Hgb 14.9 Hct 42.9 MCV 91.7 MCH 31.8 MCHC 34.7 RDW Std Deviation 43.1 RDW Coeff of Rebecca 12.8 Plt Count 167 MPV 10.6 Neutrophils % (Manual) 27 Lymphocytes % (Manual) 45 Monocytes % (Manual) 4 Eosinophils % (Manual) 1 Basophils % (Manual) 3 Neutrophils # (Manual) 1.52 Total Absolute Neuts 1.52 Lymphocytes # (Manual) 2.54 Total Abs Lymphocytes 3.67 H Monocytes # (Manual) 0.23 Eosinophils # (Manual) 0.06 Basophils # (Manual) 0.17 Large Granular Lymphs 20 # Lrg Granular Lymphs 1.13 PT 11.6 INR 1.1 APTT 26 PTT Ratio 1.0 Sodium 137 Potassium 4.1 Chloride 103 Carbon Dioxide 26 Anion Gap 8 BUN 17 Creatinine 0.91 Est Cr Clr Drug Dosing 78.3 eGFR 93.53 BUN/Creatinine Ratio 18.7 Glucose 106 H Calcium 9.2 Troponin I High Sens 15.3 Lipase 33 Diagnostic Findings Chest X-Ray 12/24/24 19:30 Single frontal view of the chest Comparison is made to prior exam dated May 21, 2020 Impression: No acute pulmonary pathology. Electronically signed by Cuco Garrett 12-24-2024 8:01 PM Medications Administered Aspirin 324 mg p.o. ECG Additional Comments: A flutter with variable AV block, pulmonary disease pattern 100 bpm, QRS 93, QT/QTc 302/389, PRT 156/-10/-30 Code Status & VTE Plan Code Status Full Supervising Physician Co-Signing Physician Notes Patient seen and examined, chart reviewed, case discussed with LADONNA Ghotra and I agree with the assessment and plan as above. In brief, patient is a 64yo male with histoyr of CVA with significant expressive aphasia, PAF on Xarelto, HTN, HLP presenting with some epigastric and mid-sternal chest discomfort ongoing for the last week Patient in no distress at present +S1/S2, regular, no m/r/g Lungs CTA anteriorly Abd with some mild epigastric tenderness to palpation, no rebound/guarding Ext - warm, well perfused labs and images reviewed Trop=15.3, chest pain ongoing for the last 3 days Assessment/Plan -suspect GI cause of patient's discomfort -repeat troponin x 1 to assess trend -Repeat echo -Start protonix -Remainder as above PG Care Time/CCT Total # of Minutes Spent Total Time Spent with Patient: Total time spent is greater than 50% in coordination of care (as documented) at patient's floor/unit and/or counseling patient: Coding Level of Care Code 85873 INT INP/OBS CARE 3/75MIN Diagnoses Chest pain R07.9
[2024-12-24] MEDS ORDERED: MELATONIN 3 MG TAB PO PRN (22:19)
[2024-12-24] MEDS ORDERED: ACETAMINOPHEN 325 MG TAB PO PRN (22:19)
[2024-12-24] MEDS ORDERED: ONDANSETRON INJ 2 MG/ML 2 ML VIAL IV PRN (22:19)
[2024-12-24] MEDS ORDERED: POLYETHYLENE (MIRALAX) 17 GM PACK PO PRN (22:19)
[2024-12-25 05:59] LABS: Hematocrit (blood only) 42.3 % (42.0-52.0); Hemoglobin 14.5 g/dl (14.0-18.0); Mean Corpuscular Hemoglobin 31.5 pg (25.0-34.0); Mean Corpuscular Volume 91.8 fL (80.0-100.0); Platelet Count 145 K/uL (130-400); RDW Standard Deviation 42.5 fL (36.4-46.3); Red Blood Count 4.61 M/uL (4.70-6.10); White Blood Count 4.69 K/ul (4.8-10.8)
[2024-12-25] MEDS: METOPROLOL SUCC 50MG EXT REL TAB PO SCH (08:13)
[2024-12-25] MEDS: RIVAROXABAN 20 MG TAB PO SCH ×2 (08:15→16:33)
[2024-12-25] MEDS ORDERED: Nursing to Pharmacy Communication SCH (09:00)
--- NOTE | 2024-12-25 13:29 | Hospitalist Progress Note ---
Date of Service December 25, 2024 Assessment & Plan (1) Chest pain: Plan 64-year-old male PMHx CVA (2022) on Xarelto aphasia, paroxysmal A-fib, HTN, HLD, history of prostate cancer, dermatitis, GERD, and lumbar spinal stenosis presenting for midsternal chest pain x 3 days. ED evaluation reveals CBC without leukocytosis, stable H&H; PT/INR WNL; CMP grossly unremarkable with exception of glucose 106; troponin 15.3; CXR without acute pulmonary pathology; EKG a flutter with variable AV block, pulmonary disease pattern at 100 bpm.; Provided with aspirin 324 mg p.o. in the ED. #Chest pain Likely secondary to esophageal spasms EKG chronic flutter, trops wnl 7 days chest pain, midsternal. Occasional radiation below L breast and radiating to back. None at present, but has been consistent. ROSS, new for patient. Does also demonstrate a "choking" motion after an eating motion. States he occasionally feels that food gets stuck in his throat. No longer on PPI, but with history of GERD. Consult GI Swallow eval -continue PPI #History of CVA - 2019 and again in 2022, on Xarelto; with residual expressive aphasia #PAF- EKG read as Aflutter, 100 bpm at admission; Xarelto, metoprolol - continue #HTN- Metoprolol - continue #HLD- Intolerant to statins, diet controlled Dispo: Obs, med/tele VTE Prophylaxis: On Xarelto- continue Admission and Anticipated Discharge Date Admission Date: December 25, 2024 Subjective Patient seen and examined, some difficulty understanding him due to residual aphasia from CVA Review of Systems Review of Systems: All systems reviewed are negative, apart from the ones contained in the history. Physical Exam Physical Exam: General: No acute distress Skin: Warm and dry Head: Normocephalic, atraumatic Eyes: PERRL, conjunctivae clear, sclera non-icteric ENT: External ear and ear canal without swelling; nose atraumatic; good dentition, tongue normal appearance, pharynx normal Neck: Supple, no LAD Cardio: RRR, no M/G/R, S1 and S2 normal Resp: No respiratory distress, Lungs CTA in all lobes bilaterally, no wheezes, rales, or rhonchi Abdomen: Soft, symmetric, nontender; No masses or hepatosplenomegaly; Bowel sounds normoactive MSK: No deformities; pulses palpable and equal; no edema. Neuro: Expressive aphasia, utilizes notepad and pen to communicate; Awake, alert; Sensation intact bilaterally; CN grossly intact Psych: Appropriate mood and affect; good judgement and insight. Results & Data Results & Data Vital Signs (Past 12 Hours) Vital Signs Temp Pulse Pulse Resp BP Pulse Ox O2 Del Method 12/25/24 12:54 97.3 F L 74 18 126/74 98 Room Air 12/25/24 11:59 97.5 F L 75 18 101/66 97 Room Air 12/25/24 08:20 97.9 F 66 19 143/94 H 96 Room Air 12/25/24 07:31 Room Air 12/25/24 05:43 71 12/25/24 04:15 97.5 F L 71 18 122/76 95 Room Air PG Care Time/CCT Total # of Minutes Spent Total Time Spent with Patient: Total time spent is greater than 50% in coordination of care (as documented) at patient's floor/unit and/or counseling patient: Coding Level of Care Code 82185 SUB INP/OBS CARE 2/35MIN Diagnoses Chest pain R07.9 Time Spent (min) 35
--- NOTE | 2024-12-25 13:48 | Gastrointestinal Consultation ---
Date of Consultation December 25, 2024 Assessment & Plan (1) History of CVA (cerebrovascular accident): 64 year old male w/ history of CVA (2019, 2022, expressive aphasia) on Xarelto, paroxysmal A-fib, HTN, hyperlipidemia, prostate cancer, dermatitis, GERD, lumbar spinal stenosis presenting for midsternal chest pain x 7 days - GI was asked to evaluate for potential esophageal spasm. He reports unchanged, intermittent solid's dysphagia w/ report of sticking sensation at his sternum. EGD in 2024 w/ normal esophagus. At the time symptoms were thought to be residual from his previous CVA Follow video/barium swallow as scheduled 12/26/24 w/ additional recommendations to follow. I spent a total of 60 minutes on the date of service in review of patient's record, and previously obtained information in person and appropriate medical visit, discussion and education of plan, with patient and/or caregiver, placing orders for tests/referral/procedures as medically necessary and documentation of pertinent clinical information in patient's medical records for their visit today. (2) Difficulty swallowing: (3) Epigastric pain: Supervising Physician Co-Signing Physician Notes Agree with current notes no changes. Await modified barium swallow barium esophagram. Further recommendations made pending this. History of Present Illness Reason for Consultation: esophageal spasm Requesting Physician: Shahla Ozuna MD Attending Physician: Shahla Ozuna MD History of Present Illness 64 year old male w/ history of CVA (2019, 2022, expressive aphasia) on Xarelto, paroxysmal A-fib, HTN, hyperlipidemia, prostate cancer, dermatitis, GERD, lumbar spinal stenosis presenting for midsternal chest pain x 7 days - GI was asked to evaluate for potential esophageal spasm. Pt was seen and evaluated, chart reviewed. He was ambulating the halls prior to evaluation. He suggests he often experiences with discomfort with solid intake and sticking sensation at his sternum. Largely unchanged since his EGD evaluation. Denies nausea/vomiting. No reflux/regurgitation. He suggests he does gag when he feels sticking sensation. Denies diarrhea/constipation. No black or bloody stools. No fever, chills, CP, SOB. EGD 2024: Normal esophagus. - Normal stomach. - Normal examined duodenum. - No specimens collected. EGD 2022: - Normal esophagus. - Gastritis. Biopsied. - Normal duodenal bulb and second portion of the duodenum. Colonoscopy 2022: - The entire examined colon is normal. Biopsied. - Two 5 to 8 mm polyps in the descending colon, removed with a hot snare. Resected and retrieved. Allergies Allergy/AdvReac Type Severity Reaction Status Date / Time No Known Allergies Allergy Verified 12/24/24 20:26 Home Medications Medication Instructions Recorded Confirmed Type multivitamin with minerals-folic 1 tab PO DAILY 08/09/23 12/24/24 History acid 120 mcg chewable tablet (Centrum Adult 50 Plus Fresh-Fruity) mecobalamin (vitamin B12) 1,000 1,000 mcg PO DAILY #30 tabs 03/29/24 12/24/24 Rx mcg chewable tablet metoprolol succinate 100 mg 100 mg PO DAILY #90 tabs 12/17/24 12/24/24 Rx tablet,extended release 24 hr rivaroxaban 20 mg tablet (Xarelto) 20 mg PO DAILY #90 tabs 12/17/24 12/24/24 Rx vitamin E 268 mg (400 unit) capsule 268 mg PO DAILY 12/24/24 12/24/24 History Patient History Medical History Gastritis Anticoagulant long-term use History of CVA (cerebrovascular accident) last stroke 03/2023- w/ impaired verbal communication and right sided facial paralysis and h/o in 2019 History of COVID-2019- no hosp; resolved Epigastric pain intermittent, reason for upcoming procedure Difficulty swallowing mild since stroke. History of colon polyps SI (stress incontinence), male Obstructive sleep apnea denies Lumbar foraminal stenosis ? in hx. Lyme disease hx Surgical History History of endoscopy Status post total right knee replacement (08/15/18) History of lumbar fusion (02/2018) L3-4 (FEB 2018) History of carpal tunnel release of both wrists Hx of arthroscopy of right knee x3 Hx of fusion of cervical spine x2 History of total hip arthroplasty (2013) Right Hip then Revision done Status post hardware removal Right Hip hardware removal History of open reduction and internal fixation (ORIF) procedure Right femur History of repair of rotator cuff Right History of prostatectomy (01/25/17) 01/2017- Grade 1 View - MAC #3, ETT #7.5 History of cardiac radiofrequency ablation x5 [facility] last one 07/2008 Family History Brother History of cancer Father Prostate cancer Denies family history of Ovarian cancer Myocardial infarction Breast cancer Colorectal cancer Social History Smoking Status: Never smoker Tobacco Type: Declines Age Started Using Tobacco: 20; Age Quit Using Tobacco: 28; packs per day: 0.25; Second Hand Exposure: No; Do You Dip or Chew Tobacco: No; Hx Alcohol Use: Yes Alcohol type: beer Alcohol Intake Frequency: Monthly or Less Hx Substance Use: Yes Last Used Substance: Days (ago) Last Used Substance Other:: 9 days Substance Use Type Other:: marijuana on occ/not every day (advised) Preferred Language: Thai Communication Ability: Impaired Communication Ability Comment: expressive aphasia Visual Impairment: No Limitations Hearing Ability: Normal Front Of House Manager Required: No Beliefs That Will Affect Care: None Current Living Situation: Alone current occupational status: disabled Feels Safe at Home: Yes Childhood Exposure to Second-Hand Smoke: No Diet: regular caffeine: No during the past year weight has: remained stable Dental Care, Regularly: No Physical Activity Frequency: Does not Exercise Seatbelt Use: always Sunscreen Use: No Assistive Devices: Glasses Review of Systems Review of Systems: All other findings negative except as noted in HPI. Physical Exam Constitutional: WD/WN, vitals as above Gastrointestinal (Abdomen): normal bowel sounds, soft, nontender, no hepatosplenomegaly Skin: no rashes, warm and dry Results & Data Vital Signs (Past 12 Hours) Vital Signs Temp Pulse Pulse Resp BP Pulse Ox O2 Del Method 12/25/24 12:54 97.3 F L 74 18 126/74 98 Room Air 12/25/24 11:59 97.5 F L 75 18 101/66 97 Room Air 12/25/24 08:20 97.9 F 66 19 143/94 H 96 Room Air 12/25/24 07:31 Room Air 12/25/24 05:43 71 12/25/24 04:15 97.5 F L 71 18 122/76 95 Room Air Laboratory Results 12/25/24 12/24/24 Range/Units 05:32 19:36 WBC 4.69 L 5.64 (4.8-10.8) K/ul RBC 4.61 L 4.68 L (4.70-6.10) M/uL Hgb 14.5 14.9 (14.0-18.0) g/dl Hct 42.3 42.9 (42.0-52.0) % MCV 91.8 91.7 (80.0-100.0) fL MCH 31.5 31.8 (25.0-34.0) pg MCHC 34.3 34.7 (32.0-36.0) g/dL RDW Std Deviation 42.5 43.1 (36.4-46.3) fL RDW Coeff of Rebecca 12.6 12.8 (11.5-14.5) % Plt Count 145 167 (130-400) K/uL MPV 10.7 10.6 (9.4-12.4) fL Neutrophils % (Manual) 27 % Lymphocytes % (Manual) 45 % Monocytes % (Manual) 4 % Eosinophils % (Manual) 1 % Basophils % (Manual) 3 % Neutrophils # (Manual) 1.52 (1.40-6.50) K/uL Total Absolute Neuts 1.52 (1.4-6.5) K/uL Lymphocytes # (Manual) 2.54 (1.2-3.4) K/uL Total Abs Lymphocytes 3.67 H (1.2-3.4) K/uL Monocytes # (Manual) 0.23 (0.11-0.59) K/uL Eosinophils # (Manual) 0.06 (0-0.50) K/uL Basophils # (Manual) 0.17 (0-0.2) K/uL Large Granular Lymphs 20 % # Lrg Granular Lymphs 1.13 K/uL PT 11.6 (9.0-12.0) Seconds INR 1.1 (0.9-1.1) APTT 26 (21-31) Seconds PTT Ratio 1.0 Sodium 137 (136-145) mmol/L Potassium 4.1 (3.5-5.1) mmol/L Chloride 103 (98-107) mmol/L Carbon Dioxide 26 (21-32) mmol/L Anion Gap 8 (3-11) BUN 17 (6-23) mg/dl Creatinine 0.91 (0.6-1.4) mg/dl Est Cr Clr Drug Dosing 78.3 ml/min eGFR 93.53 BUN/Creatinine Ratio 18.7 (10-20) Glucose 106 H (70-99(Fasting)) mg/dl Calcium 9.2 (8.6-10.3) mg/dl Troponin I High Sens 18.5 15.3 (0-20) pg/ml Lipase 33 (11-82) U/L PG Care Time/CCT Total # of Minutes Spent Total Time Spent with Patient: Total time spent is greater than 50% in coordination of care (as documented) at patient's floor/unit and/or counseling patient: Coding Level of Care Code 46904 INT INP/OBS CARE MIN Diagnoses History of CVA (cerebrovascular accident) Z86.73 Difficulty swallowing R13.10 Epigastric pain R10.13
[2024-12-25] MEDS: ALUMINUM/MAGNESIUM SUSP 30 ML UDC PO PRN (20:49)
--- NOTE | 2024-12-26 09:48 | Gastroenterology Progress Note ---
Date of Service December 26, 2024 Assessment & Plan (1) History of CVA (cerebrovascular accident): Plan: 64 year old male w/ history of CVA (2022, expressive aphasia) on Xarelto, paroxysmal A-fib, HTN, hyperlipidemia, prostate cancer, dermatitis, GERD, lumbar spinal stenosis presenting for midsternal chest pain x 7 days Follow video/barium swallow as scheduled 12/26/24 w/ additional recommendations to follow. (2) Difficulty swallowing: (3) Epigastric pain: Admission and Anticipated Discharge Date Admission Date: December 25, 2024 Supervising Physician Co-Signing Physician Notes Reflux esophageal dysmotility. No definite stricture 12 mm barium tablet passed without issue. Recommend twice daily PPI therapy for 3 months. Head of the bed elevation to prevent nocturnal regurgitation and fluid in the esophagus. After 2 months of therapy if symptoms persist recommend upper endoscopy. Patient to be discharged from a GI perspective. Subjective Pt was out of room x 2 attempts. Will attempt to evaluate on afternoon rounds. Results & Data Results & Data Vital Signs (Past 12 Hours) Vital Signs Temp Pulse Resp BP BP Pulse Ox O2 Del Method 12/26/24 07:49 97.7 F 75 18 126/80 98 Room Air 12/26/24 07:34 97.3 F L 77 16 129/78 97 Room Air PG Care Time/CCT Total # of Minutes Spent Total Time Spent with Patient: Total time spent is greater than 50% in coordination of care (as documented) at patient's floor/unit and/or counseling patient: Coding Level of Care Code None Diagnoses History of CVA (cerebrovascular accident) Z86.73 Difficulty swallowing R13.10 Epigastric pain R10.13
--- NOTE | 2024-12-26 10:29 | Hospitalist Progress Note ---
Date of Service December 26, 2024 Assessment & Plan (1) Chest pain: Plan 64-year-old male PMHx CVA (2022) on Xarelto aphasia, paroxysmal A-fib, HTN, HLD, history of prostate cancer, dermatitis, GERD, and lumbar spinal stenosis presenting for midsternal chest pain x 3 days. ED evaluation reveals CBC without leukocytosis, stable H&H; PT/INR WNL; CMP grossly unremarkable with exception of glucose 106; troponin 15.3; CXR without acute pulmonary pathology; EKG a flutter with variable AV block, pulmonary disease pattern at 100 bpm.; Provided with aspirin 324 mg p.o. in the ED. #Chest pain Likely secondary to esophageal spasms EKG chronic flutter, trops wnl 7 days chest pain, midsternal. Occasional radiation below L breast and radiating to back. None at present, but has been consistent. ROSS, new for patient. Does also demonstrate a "choking" motion after an eating motion. States he occasionally feels that food gets stuck in his throat. No longer on PPI, but with history of GERD. Consult GI For Video Swallow today -continue PPI #History of CVA - 2019 and again in 2022, on Xarelto; with residual expressive aphasia #PAF- EKG read as Aflutter, 100 bpm at admission; Xarelto, metoprolol - continue #HTN- Metoprolol - continue #HLD- Intolerant to statins, diet controlled Dispo: Obs, med/tele VTE Prophylaxis: On Xarelto- continue Admission and Anticipated Discharge Date Admission Date: December 25, 2024 Subjective awaiting video swallow today Review of Systems Review of Systems: All systems reviewed are negative, apart from the ones contained in the history. Physical Exam Physical Exam: General: No acute distress Skin: Warm and dry Head: Normocephalic, atraumatic Eyes: PERRL, conjunctivae clear, sclera non-icteric ENT: External ear and ear canal without swelling; nose atraumatic; good dentition, tongue normal appearance, pharynx normal Neck: Supple, no LAD Cardio: RRR, no M/G/R, S1 and S2 normal Resp: No respiratory distress, Lungs CTA in all lobes bilaterally, no wheezes, rales, or rhonchi Abdomen: Soft, symmetric, nontender; No masses or hepatosplenomegaly; Bowel sounds normoactive MSK: No deformities; pulses palpable and equal; no edema. Neuro: Expressive aphasia, utilizes notepad and pen to communicate; Awake, alert; Sensation intact bilaterally; CN grossly intact Psych: Appropriate mood and affect; good judgement and insight. Results & Data Results & Data Vital Signs (Past 12 Hours) Vital Signs Temp Pulse Resp BP BP Pulse Ox O2 Del Method 12/26/24 07:49 97.7 F 75 18 126/80 98 Room Air 12/26/24 07:34 97.3 F L 77 16 129/78 97 Room Air PG Care Time/CCT Total # of Minutes Spent Total Time Spent with Patient: Total time spent is greater than 50% in coordination of care (as documented) at patient's floor/unit and/or counseling patient: Coding Level of Care Code 75692 SUB INP/OBS CARE 2/35MIN Diagnoses Chest pain R07.9 Time Spent (min) 35
[2024-12-26 11:49] VITALS: TEMP 97.5
[2024-12-26 14:01] VITALS: PULSE 85; RESP 20; O2SAT 97
--- NOTE | 2024-12-26 14:16 | Fluoroscopy Report ---
FL barium swallow CLINICAL HISTORY: assess for esophageal dysfunction. TECHNIQUE: Barium contrast and effervescent crystals were administered to the patient under fluorosco pic examination. Multiple images were obtained and submitted for review. FLUOROSCOPY TIME: 0.9 minutes FLUOROSCOPY IMAGES: 48 Ka,r: 26 mGy COMPARISON: None FINDINGS: There is mildly reduced esophageal motility and mild tertiary contractions. There is a very small sliding hiatal hernia. There is gastroesophageal reflux. No persistent esophageal stricture se en. 12 mm barium tablet passes through the esophagus and into the stomach without delay. There is low er cervical and upper thoracic spine and metallic fusion. IMPRESSION: Very small hiatal hernia with gastroesophageal reflux. ACT 112: Negative or not required by law. The above report was generated using voice recognition software. It may contain grammatical, syntax o r spelling errors. Electronically signed by: Ori Alford M.D. 12/26/2024 2:14 PM
--- NOTE | 2024-12-26 14:45 | Discharge Summary ---
Date of Service December 26, 2024 Admission HPI Per Admitting Provider 64-year-old male PMHx CVA (2022) on Xarelto with expressive aphasia, paroxysmal A-fib, HTN, HLD, history of prostate cancer, dermatitis, GERD, and lumbar spinal stenosis presenting for midsternal chest pain x 7 days. Again, patient has expressive aphasia so there is a barrier regarding obtaining detailed history regarding the event. He holds up "7" with his hands when asked how long he has been having chest pain. He traces on his chest that it is midsternal with occasional radiation to his L breast/back area. He shakes his head no when asked if the pain radiates to his arm, upper back, jaw, or neck. He shakes his head yes when asked if he has "heart fluttering" and writes the word "heat" on his notepad, agreeing that the heart fluttering happens in the heat. He has ROSS, displaying a running motion with his arms and confirms by shaking his head "yes" when asked if the SOB is with exercise. Shakes head no when asked if SOB at rest or when laying flat. Does demonstrate a choking motion and coughing motion after eating or if eating too fast. He has these symptoms with liquids as well. He demonstrates a runny nose as well. He denies abdominal pain, N/V/D/C, LUTS, numbness/tingling, F/C, or weakness. No recent falls. ED evaluation reveals CBC without leukocytosis, stable H&H; PT/INR WNL; CMP grossly unremarkable with exception of glucose 106; troponin 15.3; CXR without acute pulmonary pathology; EKG a flutter with variable AV block, pulmonary disease pattern at 100 bpm.; Provided with aspirin 324 mg p.o. in the ED. Admission Exam (Per Admitting) Constitutional The patient is awake, alert and oriented 3, well developed and well nourished, normocephalic and atraumatic, lying in bed and in no acute distress. HEENT--PERRL, EOMI, mucous membranes and oropharynx mildly dry Neck--supple. No JVD. No bruits. Thyroid normal, trachea midline, no adenopathy. Heart--normal S1 and S2. No murmurs, rubs or gallops. Lungs--clear bilaterally, no respiratory distress, no accessory muscle use. Abdomen--normal bowel sounds and soft. Extremities--no cyanosis or clubbing. No edema. Dermatologic--normal skin turgor, normal color, no abnormal lymph nodes, no rash. Neurologic--cranial nerves II through XII grossly intact. Rheumatologic--normal range of motion. Psychiatric--normal affect. Discharge Data Consultations 12/24/24 20:17 ED Decision to Admit Stat 12/25/24 13:25 Consult Gastroenterology Routine Hospital Course (1) Chest pain: Plan 64-year-old male PMHx CVA (2019, 2022) on Xarelto aphasia, paroxysmal A-fib, HTN, HLD, history of prostate cancer, dermatitis, GERD, and lumbar spinal stenosis presenting for midsternal chest pain x 3 days. ED evaluation reveals CBC without leukocytosis, stable H&H; PT/INR WNL; CMP grossly unremarkable with exception of glucose 106; troponin 15.3; CXR without acute pulmonary pathology; EKG a flutter with variable AV block, pulmonary disease pattern at 100 bpm.; Provided with aspirin 324 mg p.o. in the ED. #Chest pain Likely secondary to esophageal spasms EKG chronic flutter, trops wnl 7 days chest pain, midsternal. Occasional radiation below L breast and radiating to back. None at present, but has been consistent. ROSS, new for patient. Does also demonstrate a "choking" motion after an eating motion. States he occasionally feels that food gets stuck in his throat. No longer on PPI, but with history of GERD. Consult GI Barium swallow was essentially normal -continue PPI BID for 3 months -Outpatient f/u with GI #History of CVA - 2019 and again in 2022, on Xarelto; with residual expressive aphasia #PAF- EKG read as Aflutter, 100 bpm at admission; Xarelto, metoprolol - continue #HTN- Metoprolol - continue #HLD- Intolerant to statins, diet controlled Dispo: Obs, med/tele VTE Prophylaxis: On Xarelto- continue Coding Level of Care Code 14802 INP/OBS DISCH >30 MIN Diagnoses Chest pain R07.9 Time Spent (min) 35
[2024-12-26 14:48] VITALS: BP 126/72
--- NOTE | 2024-12-29 07:12 | Electrocardiogram Report ---
Test Reason : Blood Pressure : */* mmHG Vent. Rate : 100 BPM Atrial Rate : 300 BPM P-R Int : * ms QRS Dur : 92 ms QT Int : 302 ms P-R-T Axes : 156 -10 -30 degrees QTcB Int : 389 ms Atrial flutter with variable A-V block Pulmonary disease pattern Possible Inferior infarct , age undetermined Abnormal ECG When compared with ECG of 17-Dec-2024 10:27, (unconfirmed) HR has decreased Confirmed by Leonel Duke ([id number]) on 12/29/2024 7:12:35 AM Referred By: REFERRED SELF Confirmed By: Leonel Duke
== END 2024-12-26 15:18 | disposition home or self-care (01) | DRG 392 ==
LOC: ED 19:20 → 2N 19:20 → SUATTDRO 21:28 → 2N 22:09 → 3N 12-25 12:52